=== PATIENT | male | born 1990 | race Caucasian/White ===

== ENCOUNTER 2020-02-13 07:59 | Outpatient (REF) | payer OTHER, SELFPAY | END 2020-02-13 08:00 | disposition home or self-care (01) | LOC: HO.HMGCLDS 07:59 | PROVIDERS: PCP Internal Medicine; Visit Provider Internal Medicine | DX: Z20.828 Contact with and (suspected) exposure to other viral communicable diseases (principal) | CPT/HCPCS: C9803; U0003 ==

== ENCOUNTER 2020-03-11 07:52 | Outpatient (REF) | payer SELFPAY | END 2020-03-11 07:53 | disposition home or self-care (01) | LOC: HO.HMGCLDS 07:52 | PROVIDERS: PCP Internal Medicine; Visit Provider Internal Medicine | DX: Z20.828 Contact with and (suspected) exposure to other viral communicable diseases (principal) | CPT/HCPCS: C9803; U0003 ==

== ENCOUNTER → 2021-11-13 13:44 | Outpatient (BNVA) | payer OTHER, SELFPAY | PROVIDERS: PCP Nurse Practitioner Family; Visit Provider Urology | DX: F41.8 Other specified anxiety disorders (principal); Z30.09 Encounter for other general counseling and advice on contraception | CPT/HCPCS: 99202 ==

== ENCOUNTER → 2021-12-17 13:33 | Outpatient (BNVA) | payer OTHER, SELFPAY | PROVIDERS: PCP Nurse Practitioner Family; Visit Provider Urology | DX: Z30.2 Encounter for sterilization (principal); F41.8 Other specified anxiety disorders | CPT/HCPCS: 55250 ==

== ENCOUNTER → 2022-03-24 14:09 | Outpatient (BNVA) | payer OTHER, SELFPAY | PROVIDERS: PCP Nurse Practitioner Family; Visit Provider Urology | DX: Z30.8 Encounter for other contraceptive management (principal); Z98.52 Vasectomy status | CPT/HCPCS: 99212 ==

== ENCOUNTER 2023-08-30 08:03 | Outpatient (AMB) | payer OTHER, SELFPAY ==
--- NOTE | 2023-08-30 08:06 | A.OFFPC_ITS ---
Vital Signs 08/30/23 08:08 Height 5 ft 8 in Weight 200 lb BMI 30.4 BP 130/86 Blood Pressure Location Rt brachial Position Sitting Pulse 87 Pulse Source Pulse Oximeter Pulse Oximetry (%) 98 Oxygen Delivery Method Room Air Intake Visit Reasons: Annual PE Intake Note: Patient here for physical exam. pt would like to talk about having a sleep study done. Allergies No Known Allergies Allergy (Verified 08/30/23 08:21) Medication List - Last Reconciled 08/30/23 by MAXIM Leahy citalopram 40 mg (2 x 20 mg) PO DAILY 90 days Tobacco use date assessed: 08/30/23 Dental Screening Dental Screen Date: 08/30/23 Did you have a dental visit in the last 12 months?: Yes Did you have a dental problem in the last 6 months where you did not have access to dental care?: No Was dental information given to patient?: Patient has dentist HPI Annual PE HPI Details Pt is here for a PE. Will order labs. Pt reports significant snoring and was told he stops breathing in his sleep. Will refer for sleep study. [facility] Surgical History History of hernia surgery Family History Father Hypertension Mother No problems noted. Brother Mental health disorder Substance use disorder Social History Housing: House Patient Tobacco Use Status: Never used Tobacco e-Cigarette/Vaping Use: Never Used Current occupational status: employed Cognitive needs: No Hearing needs: No Vision needs: No Questionnaire PHQ-9 Over the last 2 weeks, how often have you been bothered by any of the following problems? 1. Little interest or pleasure in doing things: not at all 2. Feeling down, depressed, or hopeless: not at all 3. Trouble falling or staying asleep, or sleeping too much: several days 4. Feeling tired or having little energy: more than half the days 5. Poor appetite or overeating: several days 6. Feeling bad about yourself - or that you are a failure or have let yourself or your family down: not at all 7. Trouble concentrating on things, such as reading the newspaper or watching television: not at all 8. Moving or speaking so slowly that other people could have noticed. Or the opposite - being so fidgety or restless that you have been moving around a lot more than usual: not at all 9. Thoughts that you would be better off or of hurting yourself in some wa y: not at all Total score: 4 Depression Screening Interpretation: Negative Depression Screening Done: Yes 34692 - PHQ-9 Billing: Yes Source: Developed by Drs. Ludwig Quintero, Ruby Taylor, Jamal Tierney and colleagues, with an educational shane from [employer]. Thrive Questionnaire Date Thrive assessed: 08/30/23 I am a: Patient What is your living situation today?: I have a steady place to live Within the past 12 months, did the food you bought not last and you didn't have the money to get more?: Never true Within the past 12 months, did you worry whether your food would run out before you got money to buy more?: Never true Do you have trouble paying for medicines?: No Do you have trouble getting transportation to medical appointments?: No Do you have trouble paying your heating and electricity bill?: No Do you have trouble taking care of your child, family member or friend?: No Do you have trouble with day-to-day activities such as bathing, preparing meals, shopping, managing finances, etc.?: No Are you currently unemployed and looking for a job?: No Are you interested in more education?: No Currently or been in a relationship where the following occur: no concerns reported and I choose not to answer this question THRIVE Score: 0 AUDIT C Alcohol Use Questionnaire (AUDIT-C) 1. How often do you have a drink containing alcohol?: 2-3 times a week 2. How many drinks containing alcohol do you have on a typical day when you are drinking?: 1 or 2 3. How often do you have six or more drinks on one occasion?: Never Total Score: 3 Score Reviewed/Action Taken: No KEMI-7 AMB Questionnaire KEMI-7 Date KEMI - 7 assessed: 08/30/23 Feeling nervous, anxious, or on edge: 1 = Several days Not being able to stop or control worryin = Several days Worrying too much about different things: 1 = Several days Trouble relaxin = Several days Being so restless that it is hard to sit still: 1 = Several days Becoming easily annoyed or irritable: 1 = Several days Feeling afraid as if something awful might happen: 0 = Not at all Total KEMI-7 score (0-4 normal; 5-9 mild; 10-14 moderate; 15-21 severe): 6 Source: Developed by Drs. Ludwig Quintero, Ruby Taylor, Jamal Tierney and colleagues, with an educational shane from [employer]. KEMI-7 Assessment Billing KEMI-7 Assessment Tool: KEMI-7 Assessment 03377 Review of Systems Const Denies chills and Denies fever(s) Eyes Denies blurry vision ENT Denies vertigo, Denies dizziness and Denies sore throat Card Denies chest pain at rest, Denies chest pain with activity, Denies diaphoresis, Denies dyspnea and Denies dyspnea on exertion Resp Denies cough, Denies dyspnea, Denies dyspnea on exertion and Denies wheezing GI Denies abdominal pain, Denies melena, Denies hematochezia, Denies constipation, Denies diarrhea and Denies loose stools Denies hematuria Musc Denies numbness and Denies tingling Skin/Breast Denies lesions Neuro Denies vertigo, Denies dizziness, Denies numbness and Denies tingling Psych Denies anxiety, Denies depression, Denies homicidal ideation, Denies suicidal ideation and Denies other (substance abuse) Aller/Immun Denies wheezing Physical exam (Primary Care) Vital Signs: Last Vital Signs Pulse 87 08/30/23 08:08 BP 130/86 08/30/23 08:08 Pulse Ox 98 08/30/23 08:08 Oxygen Delivery Method Room Air 08/30/23 08:08 BMI result Body Mass Index 30.4 Tobacco/Smoking Status: Tobacco use Status Tobacco use date assessed 08/30/23 08/30/23 08:11 Patient Tobacco Use Status Never used Tobacco 08/30/23 08:07 e-Cigarette/Vaping Use Never Used 08/30/23 08:07 Depression Screening Interpretation: Negative Thrive Assessment: Date of Thrive Assessment Date Thrive assessed 08/20/21 08/30/23 08:07 Currently or been in a relationship where the following occur: no concerns reported and I choose not to answer this question Const General: cooperative Nutritional Appearance: well nourished Orientation/consciousness: patient oriented x3 HENMT Head: Yes normal to inspection, Yes normocephalic and Yes atraumatic Ears: TM's normal bilaterally Eyes General: appearance normal, both eyes and all related structures Alignment and Position: alignment normal and position normal Neck Neck: Yes normal visual inspection and Yes no lymphadenopathy Thyroid: Thyroid normal Resp Effort & Inspection: normal respiratory effort Auscultation: clear to auscultation bilaterally Cardio Rate: regular rate Rhythm: regular rhythm Heart sounds: S1 normal heart sound present, S2 normal heart sound present and no murmurs GI Palpation (GI): Soft to palpation and nontender Auscultation: normal bowel sounds Male General Exam: Yes normal external exam Penis: normal penis Scrotum: scrotum normal, testes descended bilaterally and no inguinal hernias Testes: no testicular mass Skin Rashes: no rashes Neuro General: patient oriented x3, moves all extremities, no focal motor deficits and deep tendon reflexes 2+ bilaterally Romberg Test: Negative Psych Appearance: grossly normal Mental Status: mental status grossly normal Speech and movement: Normal speech and movement present Affect: normal affect Attitude: cooperative Thought process: Normal thought process present Thought content: Normal thought content present Insight: Good insight present (Psych) Judgement: Good judgement present (Psych) Assessment and Plan Assessment & Plan (1) Physical exam: Code(s): Z00.00 - Encounter for general adult medical examination without abnormal findings Plan: Labs ordered (2) Sleep apnea: Code(s): G47.30 - Sleep apnea, unspecified Plan: Referred for sleep study Plan The patient agreed to the use of a medical coding manager for this encounter. Scribed for MAXIM Holman by Kandace Cheng medical coding manager, on 08/30/2023 at 08:20 EST. Orders: Orders Complete Blood Count Auto Diff Today Z00.00 - Encounter for general adult medical examination without abnormal findings Comprehensive [place]. Panel Fast Today Z00.00 - Encounter for general adult medical examination without abnormal findings UA CC w/rflx Micro + Cult Today Z00.00 - Encounter for general adult medical examination without abnormal findings TSH reflex Free T4 Today Z00.00 - Encounter for general adult medical examination without abnormal findings Lipid Panel Today Z00.00 - Encounter for general adult medical examination without abnormal findings Referrals Sleep Medicine Referral G47.30 - Sleep apnea, unspecified Coding Level of Care Code Est Pt Prev Care 18-39y(10808) Diagnoses Physical exam Z00.00 Sleep apnea G47.30 Additional Codes KEMI-7 Assessment Billing - KEMI-7 Assessment Tool: KEMI-7 Assessment 44405 ([id number])
[2023-08-30 08:08] VITALS: BP 130/86; PULSE 87; O2SAT 98; BMI 30.4
== END 2023-08-30 08:36 | disposition home or self-care (01) ==
PROVIDERS: PCP Nurse Practitioner Family; Visit Provider Nurse Practitioner Family
DX: Z00.00 Encounter for general adult medical examination without abnormal findings (principal); G47.30 Sleep apnea, unspecified
CPT/HCPCS: 99395

== ENCOUNTER 2023-12-27 12:44 | Outpatient (AMB) | payer OTHER, SELFPAY ==
--- NOTE | 2023-12-27 12:59 | A.OFFVIS_ITS ---
Vital Signs 12/27/23 13:00 Height 5 ft 8 in Weight 205 lb BMI 31.2 BP 126/82 Blood Pressure Location Rt brachial Position Sitting Intake Visit Reasons: INP-GRAEME Intake Note: Patient presents for GRAEME. patient is snoring a lot,gasping for air and tired through out the day. Allergies No Known Allergies Allergy (Verified 12/27/23 13:02) Medication List - Last Reconciled 12/27/23 by JOHANA Hogan citalopram 40 mg (2 x 20 mg) PO DAILY HPI Comments Details: 33-yr-old male presents for new in-person patient visit for sleep consultation. Patient reports he has been having sleep issues for many years, but now would like to address this better. Both his parents and brother have sleep apnea. He has not had recent labs checked d/t needle phobia. Sleep questionnaire: Have you ever been diagnosed with a sleep disorder? No Have you ever had a sleep study in the past? No Have you ever been treated for a sleep disorder? No Do you take medications for a sleep disorder? No Do you have difficulty initiating sleep? No Do you have difficulty maintaining sleep? Yes- wakes up a lot Do you wake up tired? Yes Do you have daytime tiredness or fatigue? Yes Do you easily fall asleep when inactive? Yes Do you snore? Yes Do you wake up gasping at night? Yes Do you have episodes of apneas? Yes If yes, are they witnessed? Yes Do you have episodes of nocturnal chest pain? Denies Do you have bruxism? yes If yes, do you wear a mouth guard when sleeping? Has one, but does not use. Do you have headaches upon awakening? Denies Do you wake up with dry mouth or throat? Yes- during the night Do you have GERD? Denies Do you have nocturia? Denies Do you have nocturnal leg cramps? Denies Do you have symptoms of restless legs? At times, not overly bothersome. Denies leg cramps. Do you act out your dreams? Has kicked or talked in his sleep. Do you have sleep paralysis? Denies Do you have drop attacks? Denies Do you ever have hypnogenic hallucinations? Denies Hypersomnolence questionnaire: Have you ever had episodes of sudden weakness? Denies Have you ever had episodes of sudden weakness associated with strong emotions? Denies Sleep hygiene questionnaire: What is your usual sleep routine? Usual bedtime is at 9:30-10pm; Usual wake-up time is at 5:30am. Do you take naps? Yes- lunchtime Is your sleep environment cool, dark, and quiet? Yes Do you exercise? 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 1 energy drink a week, 1 cup of coffee 4 mornings per week. Do you use electronics in bed? some use of his phone What is your work schedule? Day shift. 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 [facility] Surgical History (Updated 12/27/23 @ 13:03 by FRANCISCO Reece) H/O vasectomy History of hernia surgery Family History Father Hypertension Mother No problems noted. Brother Mental health disorder Substance use disorder Social History Housing: House Patient Tobacco Use Status: Never used Tobacco e-Cigarette/Vaping Use: Never Used Current occupational status: employed Cognitive needs: No Hearing needs: No Vision needs: No Physical Exam Vital Signs: Last Vital Signs BP 126/82 12/27/23 13:00 BMI result Body Mass Index 31.2 Const General: no acute distress Orientation/consciousness: patient oriented x3 HEENT Other: Mallampati stage 4 Signs of lower dental wearing Resp Effort & Inspection: normal respiratory effort and able to speak in complete sentences Auscultation: clear to auscultation bilaterally Cardio Rate: regular rate Rhythm: regular rhythm Neuro General: patient oriented x3 Psych Mental Status: mental status grossly normal Speech and movement: Clear speech present Attitude: cooperative Assessment & Plan Assessment & Plan (1) Sleep difficulties: Code(s): G47.9 - Sleep disorder, unspecified Category: Medical (2) Excessive daytime sleepiness: Code(s): G47.19 - Other hypersomnia Category: Medical (3) Snoring: Code(s): R06.83 - Snoring Category: Medical (4) Bruxism: Code(s): F45.8 - Other somatoform disorders Category: Medical Plan Pt is advised to undergo home sleep study to assess for sleep apnea. Advised to wear his mouth guard. Labs as ordered by PCP. Pt advsied to avoid driving while sleepy. Will f/u with pt after study to discuss results and appropriate treatment options. Pt to call with any worsening concerns or questions. Pt is seen in c/w Dr Elis Peterson. Orders: Orders RT home sleep study Today G47.19 - Other hypersomnia, G47.9 - Sleep disorder, unspecified, R06.83 - Snoring Coding Level of Care Code New Pt Level 4 (31247) Diagnoses Sleep difficulties G47.9 Excessive daytime sleepiness G47.19 Snoring R06.83 Bruxism F45.8 [place] Sleepiness Scale Questions Sitting and reading: high chance of dozing Watching TV: high chance of dozing Sitting inactive in a theater, movie etc.: slight chance of dozing As a passenger in a car for an hour without break: high chance of dozing Lying down in the afternoon when circumstances permit: high chance of dozing Sitting and talking to someone: would never doze Sitting quietly after lunch without alcohol: high chance of dozing In a car, while stopped for a few minutes in the traffic: would never doze ESS < 10: normal, ESS > 12: pathologic: 16
[2023-12-27 13:00] VITALS: BP 126/82; BMI 31.2
== END 2023-12-27 13:45 | disposition home or self-care (01) ==
PROVIDERS: PCP Nurse Practitioner Family; Visit Provider Nurse Practitioner Family
DX: G47.9 Sleep disorder, unspecified (principal); G47.19 Other hypersomnia; R06.83 Snoring; F45.8 Other somatoform disorders
CPT/HCPCS: 99204

== ENCOUNTER → 2023-12-27 12:44 | Outpatient (BNVA) | payer OTHER, SELFPAY | PROVIDERS: PCP Nurse Practitioner Family; Visit Provider Nurse Practitioner Family | DX: G47.9 Sleep disorder, unspecified (principal); G47.19 Other hypersomnia; R06.83 Snoring; F45.8 Other somatoform disorders | CPT/HCPCS: 99202 ==

== ENCOUNTER → 2024-02-09 12:49 | Outpatient (REF) | payer OTHER, SELFPAY | LOC: HO.SL 12:49 | PROVIDERS: PCP Nurse Practitioner Family; Visit Provider Nurse Practitioner Family | DX: G47.9 Sleep disorder, unspecified (principal); R06.83 Snoring; G47.19 Other hypersomnia | CPT/HCPCS: 95806 ==

== ENCOUNTER → 2024-02-09 13:07 | Outpatient (BNV) | payer OTHER, SELFPAY | PROVIDERS: PCP Nurse Practitioner Family; Visit Provider Internal Medicine | DX: G47.33 Obstructive sleep apnea (adult) (pediatric) (principal) | CPT/HCPCS: 95806 ==

== ENCOUNTER 2024-04-02 10:24 | Outpatient (AMB) | payer OTHER, SELFPAY ==
[2024-04-02 10:32] VITALS: BP 112/70; PULSE 99; O2SAT 97; BMI 31.8
--- NOTE | 2024-04-02 10:32 | MHC.OFFVIS ---
Vital Signs 04/02/24 10:32 Height 5 ft 8 in Weight 209 lb BMI 31.8 BP 112/70 Blood Pressure Location Lt brachial Position Sitting Pulse 99 Pulse Source Doppler Pulse Oximetry (%) 97 Oxygen Delivery Method Room Air Intake Visit Reasons: Obstructive sleep apnea Allergies No Known Allergies Allergy (Verified 12/27/23 13:02) HPI HPI Obstructive sleep apnea: Details: 34-year-old gentleman with recent diagnosis of mild obstructive sleep apnea currently on CPAP therapy, also noted to have nocturnal hypoxemia and referred for further evaluation. Patient states that he has recently received his CPAP and started using it, however he still adjusting to it. Patient does have underlying history of asthma. [facility] Surgical History (Updated 12/27/23 @ 13:03 by FRANCISCO Reece) H/O vasectomy History of hernia surgery Family History Father Hypertension Mother No problems noted. Brother Mental health disorder Substance use disorder Social History Housing: House Patient Tobacco Use Status: Never used Tobacco e-Cigarette/Vaping Use: Never Used Current occupational status: employed Cognitive needs: No Hearing needs: No Vision needs: No Review of Systems Const Denies daytime sleepiness, Denies excessive sweating, Denies fatigue, Denies fever(s), Denies lethargy, Denies malaise, Denies night sweats, Denies snoring and Denies weight loss Eyes Denies blurry vision and Denies itchy eyes ENT Denies nasal congestion, Denies post nasal drip, Denies sinus pain, Denies sinus pressure and Denies other ( Thrush) Card Denies chest pain, Denies pedal edema, Denies dyspnea, Denies orthopnea and Denies paroxysmal nocturnal dyspnea Resp Denies cough, Denies hemoptysis, Denies excessive phlegm production, Denies dyspnea, Denies snoring and Denies wheezing GI Denies abdominal pain and Denies heartburn Musc Denies myalgias, Denies arthralgias and Denies joint swelling Skin/Breast Denies rash Neuro Denies memory loss and Denies seizure-like activity Psych Denies abnormal sleep pattern, Denies anxiety and Denies memory loss Endo Denies excessive sweating, Denies fatigue and Denies heat intolerance Emery/Lymph Denies easy bruising Aller/Immun Denies itchy eyes, Denies seasonal rhinorrhea and Denies wheezing Physical Exam Vital Signs: Last Vital Signs Pulse 99 04/02/24 10:32 BP 112/70 04/02/24 10:32 Pulse Ox 97 04/02/24 10:32 Oxygen Delivery Method Room Air 04/02/24 10:32 BMI result Body Mass Index 31.8 Const General: no acute distress and alert Nutritional Appearance: obese Orientation/consciousness: Other orientation findings ( oriented) HEENT Head: Yes atraumatic Eyes General: appearance normal, both eyes and all related structures Sclerae: sclerae normal EOM: EOMs intact bilaterally Neck Neck: Yes supple Lymphatic: no lymphadenopathy noted Resp Effort & Inspection: normal respiratory effort and no use of accessory muscles Auscultation: clear to auscultation bilaterally Cardio Rate: regular rate Rhythm: regular rhythm Heart sounds: no gallops, no murmurs and no rubs Skin General skin exam: other ( warm) Extrem General: No clubbing, No cyanosis and No edema Assessment & Plan Assessment & Plan (1) Mild obstructive sleep apnea: Code(s): G47.33 - Obstructive sleep apnea (adult) (pediatric) Category: Medical Plan: Continue CPAP therapy. (2) Nocturnal hypoxemia: Code(s): G47.34 - Idiopathic sleep related nonobstructive alveolar hypoventilation Category: Medical Plan: Likely related to underlying obstructive sleep apnea. Will obtain overnight oximetry on CPAP. (3) History of asthma: Code(s): Z87.09 - Personal history of other diseases of the respiratory system Category: Medical Plan: At this time asymptomatic. Orders: Orders Overnight Pulse Oximetry Today G47.34 - Idiopathic sleep related nonobstructive alveolar hypoventilation Coding Level of Care Code New Pt Level 4 (50741) Diagnoses Mild obstructive sleep apnea G47.33 Nocturnal hypoxemia G47.34 History of asthma Z87.09
== END 2024-04-02 10:49 | disposition home or self-care (01) ==
PROVIDERS: PCP Nurse Practitioner Family; Visit Provider Internal Medicine Pulmonary Disease
DX: G47.33 Obstructive sleep apnea (adult) (pediatric) (principal); G47.34 Idiopathic sleep related nonobstructive alveolar hypoventilation; Z87.09 Personal history of other diseases of the respiratory system
CPT/HCPCS: 99204

== ENCOUNTER → 2024-04-02 10:24 | Outpatient (BNVA) | payer OTHER, SELFPAY | PROVIDERS: PCP Nurse Practitioner Family; Visit Provider Internal Medicine Pulmonary Disease | DX: G47.33 Obstructive sleep apnea (adult) (pediatric) (principal); G47.34 Idiopathic sleep related nonobstructive alveolar hypoventilation; Z87.09 Personal history of other diseases of the respiratory system | CPT/HCPCS: 99202 ==

== ENCOUNTER 2024-05-18 08:15 | Outpatient (REF) | payer OTHER, SELFPAY ==
[2024-05-18 10:24] LABS: MANUAL DIFF FLAG NO
[2024-05-18 10:32] LABS: Basophils Percent Auto 0.4 % (0-2); Eosinophils Absolute Auto 0.2 X10*3/uL (0.0-0.4); Eosinophils Percent Auto 2.5 % (0-4); Hematocrit 41.7 % (42.0-52.0); Hemoglobin 14.4 g/dl (14.0-18.0); Imm Gran Abs Auto 0.02 X10*3/uL (0.00-0.03); Imm Gran Pct Auto 0.3 % (0.0-0.4); Lymphocytes Absolute Auto 2.7 X10*3/uL (1.2-4.9); Lymphocytes Percent Auto 39.9 % (20-40); Mean Corpuscular HGB Conc 34.5 g/dl (31.0-36.0); Mean Corpuscular Hemoglobin 31.1 pg (27.0-33.0); Mean Corpuscular Volume 90.1 fL (80.0-98.0); Mean Platelet Volume 10.5 fL (9.4-12.4); Monocytes Absolute Auto 0.7 X10*3/uL (0.1-1.2); Monocytes Percent Auto 9.8 % (2-11); Neutrophils Absolute Auto 3.2 x10*3/uL (2.0-8.3); Neutrophils Percent Auto 47.1 % (45-73); Platelet Count 262 X10*3/uL (160-400); Red Blood Count 4.63 X10*6/uL (4.60-5.80); Red Cell Distribution Width 12.9 % (11.0-16.0); White Blood Count 6.7 X10*3/uL (4.8-10.8)
[2024-05-18 10:36] LABS: Appearance Urine Clear; Color Urine Yellow; Glucose Urine UA Negative (Negative); Leukocyte Esterase Urine Negative (Negative); Nitrite Urine Negative (Negative); Specific Gravity - Urine 1.025 (1.005-1.025); Urine Blood Negative (Negative); Urine Ketones Negative (Negative); Urine Protein Negative (Neg-Trace)
[2024-05-18 11:25] LABS: Alanine Aminotransferase 59 U/L (0-40); Albumin Level 4.6 g/dL (3.5-5.0); Alkaline Phosphatase 61 U/L (39-117); Anion Gap 12 (12-20); Aspartate Amino Transferase 34 U/L (5-37); Bilirubin Total 0.5 mg/dL (0.0-1.0); Blood Urea Nitrogen 19 mg/dL (9-16); Calcium 9.7 mg/dL (8.4-10.2); Carbon Dioxide 27 mmol/L (22-29); Chloride 105 mmol/L (96-108); Cholesterol 218 mg/dL (<200); Estimated Glomerular Filt Rate > 60; Glucose Fasting 101 mg/dL (60-99); HDL Cholesterol 38 mg/dL (>40); LDL Cholesterol Calculated 131 mg/dL (<100); Potassium 4.3 mmol/L (3.3-5.1); Sodium 140 mmol/L (135-145); TSH reflex Free T4 2.49 uIU/mL (0.32-4.0); Triglycerides 247 mg/dL (<150)
== END 2024-05-18 08:16 | disposition home or self-care (01) ==
LOC: HO.HMGCLDS 08:15
PROVIDERS: PCP Nurse Practitioner Family; Visit Provider Nurse Practitioner Family
DX: Z00.00 Encounter for general adult medical examination without abnormal findings (principal)
CPT/HCPCS: 36415; 80053; 80061; 81003; 84443; 85025

== ENCOUNTER 2024-05-23 12:48 | Outpatient (AMB) | payer OTHER, SELFPAY ==
--- NOTE | 2024-05-23 13:01 | A.OFFVIS_ITS ---
Vital Signs 05/23/24 13:02 Height 5 ft 8 in Weight 213 lb BMI 32.4 BP 119/77 Blood Pressure Location Rt brachial Position Sitting Pulse 96 Pulse Source Doppler Pulse Oximetry (%) 96 Oxygen Delivery Method Room Air Intake Visit Reasons: [place] Allergies No Known Allergies Allergy (Verified 05/23/24 13:13) HPI HPI n[place]: Details: 34-year-old gentleman followed for mild obstructive sleep apnea and nocturnal hypoxemia. After the last office visit patient continued with his CPAP therapy with good control of his underlying sleep apnea symptoms. He also had overnight oximetry while on CPAP therapy that showed no significant nocturnal desaturations. [facility] Surgical History (Updated 12/27/23 @ 13:03 by FRANCISCO Reece) H/O vasectomy History of hernia surgery Family History Father Hypertension Mother No problems noted. Brother Mental health disorder Substance use disorder Social History Housing: House Patient Tobacco Use Status: Never used Tobacco e-Cigarette/Vaping Use: Never Used Current occupational status: employed Cognitive needs: No Hearing needs: No Vision needs: No Review of Systems Const Denies daytime sleepiness, Denies excessive sweating, Denies fatigue, Denies fever(s), Denies lethargy, Denies malaise, Denies night sweats, Denies snoring and Denies weight loss Eyes Denies blurry vision and Denies itchy eyes ENT Denies nasal congestion, Denies post nasal drip, Denies sinus pain, Denies sinus pressure and Denies other ( Thrush) Card Denies chest pain, Denies pedal edema, Denies dyspnea, Denies orthopnea and Denies paroxysmal nocturnal dyspnea Resp Denies cough, Denies hemoptysis, Denies excessive phlegm production, Denies dyspnea, Denies snoring and Denies wheezing GI Denies abdominal pain and Denies heartburn Musc Denies myalgias, Denies arthralgias and Denies joint swelling Skin/Breast Denies rash Neuro Denies memory loss and Denies seizure-like activity Psych Denies abnormal sleep pattern, Denies anxiety and Denies memory loss Endo Denies excessive sweating, Denies fatigue and Denies heat intolerance Emery/Lymph Denies easy bruising Aller/Immun Denies itchy eyes, Denies seasonal rhinorrhea and Denies wheezing Physical Exam Vital Signs: Last Vital Signs Pulse 96 05/23/24 13:02 BP 119/77 05/23/24 13:02 Pulse Ox 96 05/23/24 13:02 Oxygen Delivery Method Room Air 05/23/24 13:02 BMI result Body Mass Index 32.4 Const General: no acute distress and alert Nutritional Appearance: not obese Orientation/consciousness: Other orientation findings ( oriented) HEENT Head: Yes atraumatic Eyes General: appearance normal, both eyes and all related structures Sclerae: sclerae normal EOM: EOMs intact bilaterally Neck Neck: Yes supple Lymphatic: no lymphadenopathy noted Resp Effort & Inspection: normal respiratory effort and no use of accessory muscles Auscultation: clear to auscultation bilaterally Cardio Rate: regular rate Rhythm: regular rhythm Heart sounds: no gallops, no murmurs and no rubs Skin General skin exam: other ( warm) Extrem General: No clubbing, No cyanosis and No edema Assessment & Plan Assessment & Plan (1) Mild obstructive sleep apnea: Code(s): G47.33 - Obstructive sleep apnea (adult) (pediatric) Category: Medical Plan: Therapy and compliance report reviewed - patient is benefitting from and is compliant with noninvasive positive pressure ventilation treatment, using it greater than 70% of the time, more than 4 hours per night. Well controlled current CPAP therapy. Continue CPAP therapy (2) Nocturnal hypoxemia: Code(s): G47.34 - Idiopathic sleep related nonobstructive alveolar hypoventilation Category: Medical Plan: Results of overnight oximetry on CPAP reviewed significant nocturnal hypoxemia while on CPAP. No addition of nocturnal supplemental oxygen is required. Coding Level of Care Code Est Pt Level 4 (02506) Diagnoses Mild obstructive sleep apnea G47.33 Nocturnal hypoxemia G47.34
[2024-05-23 13:02] VITALS: BP 119/77; PULSE 96; O2SAT 96; BMI 32.4
== END 2024-05-23 14:34 | disposition home or self-care (01) ==
PROVIDERS: PCP Nurse Practitioner Family; Visit Provider Internal Medicine Pulmonary Disease
DX: G47.33 Obstructive sleep apnea (adult) (pediatric) (principal); G47.34 Idiopathic sleep related nonobstructive alveolar hypoventilation
CPT/HCPCS: 99214

== ENCOUNTER → 2024-05-23 12:48 | Outpatient (BNVA) | payer OTHER, SELFPAY | PROVIDERS: PCP Nurse Practitioner Family; Visit Provider Internal Medicine Pulmonary Disease | DX: G47.33 Obstructive sleep apnea (adult) (pediatric) (principal); G47.34 Idiopathic sleep related nonobstructive alveolar hypoventilation; Z99.89 Dependence on other enabling machines and devices | CPT/HCPCS: 99212 ==

== ENCOUNTER 2024-06-08 11:51 | Observation (INO) | payer OTHER, SELFPAY ==
[2024-06-08] VITALS (8 sets, daily range): BP systolic 116–150; BP diastolic 71–80; PULSE 72–97; RESP 16–20; TEMP 36.2–36.9; O2SAT 94–100; BMI 31.1
--- NOTE | ~2024-06-08 | MR_ITS ---
CLINICAL HISTORY: dizziness w nystagmus MR Brain without gadolinium Comparison: CT/SR - CT ANGIO HEAD NECK - 06/08/24 13:35 EDT Findings: No restricted diffusion. No intracranial mass or hemorrhage. No midline shift. No hydrocephalus. Vascular flow voids are intact. Orbital contents are unremarkable. Mucosal thickening throughout the paranasal sinuses. No focal bone lesion. IMPRESSION: No acute findings. This document has been electronically signed by: Alexis Carson MD on 06/08/2024 20:03:12
--- NOTE | ~2024-06-08 | CT_ITS ---
EXAMINATION: CTA NECK WITH CONTRAST CLINICAL INFORMATION: Dizziness. COMPARISON: None available. TECHNIQUE: CTA of the head and neck was performed in the axial plane from the mediastinum to the skull vertex using 70 mL Omnipaque 350 intravenous contrast. Additional reformatted multiplanar images including maximum intensity projection MIP images are generated on the CT workstation. This CT examination was performed using dose optimization techniques as appropriate, variously including the following: *Automated exposure control *Adjustment of mA and/or kV according to patient size (this includes techniques or standardized protocols for targeted exams where dose is matched to indication/reason for exam; i.e. extremities or head) *Use of iterative reconstruction technique. DLP: 1528 mGy centimeter. FINDINGS: The degree of stenosis determined by criteria similar to NASCET. Brain: No acute intracranial hemorrhage or mass effect midline shift, hydrocephalus or herniation. Dee-white matter differentiation is normal. Posterior cranial fossa contents are normal. No air-fluid levels in the paranasal sinuses. Mild mucosal thickening ethmoid cells and maxillary sinuses. Tympanic cavities and mastoid cells are aerated. Chest CTA: Normal diameter without focal stenosis or intimal flap, thoracic aortic arch. Neck CTA: Right CCA: Normal. Right ICA: Normal. Left CCA: Normal. Left ICA: Normal. V 1/ V2 segments: Normal. Right vertebral artery slightly dominant. Brain CTA: Anterior cerebral circulation: ICAs: Normal. MCA's: Normal. ACAs: Normal. Anterior communicating artery is patent. Ophthalmic arteries are patent. Left posterior communicating artery is patent. Posterior cerebral circulation: V3/V4 segments: Normal. Posterior inferior cerebellar arteries: Normal. Basilar artery: Focal fenestration in the proximal segment. Normal patency. No intimal flap. Right anterior inferior cerebral artery is patent. Superior cerebellar arteries are patent. transmitter engineer in charge: Normal. Ancillary findings: Prominent palatine tonsils bilaterally. CT/CT angio head neck IMPRESSION: No high degree stenosis or dissection. No main cerebral artery occlusion or embolus. No aneurysm, [place]. Electronically signed by: Jose Reeder MD 06/08/2024 02:33 PM EDT
--- NOTE | 2024-06-08 12:23 | ED_ITS ---
HPI - General Adult General Chief complaint: Dizziness Stated complaint: dizzy Time Seen by Provider: 06/08/24 12:23 Source: patient, family (patient's ) and EMS Mode of arrival: EMS Limitations: no limitations History of Present Illness ED Provider: Reina Jean-Baptiste PA-C HPI narrative: Patient is a 34 year old assigned male at with a history of GRAEME and asthma presenting to the emergency department today with dizziness and nausea. Patient states that he started feeling dizzy this morning, it resolved, came back, resolved again, and now he has been sustained dizzy over the last 1 hour. Patient states that he has also felt nauseous. Patient denies any lightheadedness, abdominal pain, vomiting, fever, chills, blurry vision, double vision, loss of vision, chest pain, difficulty breathing, shortness of breath, back pain, night sweats, pain with urination, increased urinary frequency, increased urinary urgency, blood in his urine or stool, syncope or a near syncopal episode, recent trauma or falls, bowel incontinence, bladder incontinence, or any other complaints at this time. Patient states that he does suffer from motion sickness. Relieving factors: none Exacerbating factors: none Associated symptoms: nausea/vomiting Treatments prior to arrival: none Related Data Previous Rx's ?Medication ?Instructions ?Recorded citalopram 20 mg tablet 40 mg (2 x 20 mg) PO DAILY #180 04/12/24 tabs Allergies Allergy/AdvReac Type Severity Reaction Status Date / Time No Known Allergies Allergy Verified 06/08/24 12:06 Review of Systems 2 Constitutional: Constitutional: Reports no additional constitutional complaints, Denies chills, Denies fever(s) and Denies night sweats Eyes: Eyes: Reports no additional eye complaints, Denies blurry vision, Denies change in vision, Denies diplopia, Denies eye discharge, Denies loss of vision and Denies eye pain ENT: Reports dizziness Cardiovascular: Cardiovascular: Reports no additional cardiovascular complaints, Denies chest pain, Denies lightheadedness, Denies Loss of Consciousness and Denies dyspnea Respiratory: Respiratory: Reports no additional respiratory complaints and Denies dyspnea Gastrointestinal: Gastrointestinal: Reports no additional gastrointestinal complaints, Denies abdominal pain, Denies melena, Denies hematochezia, Denies change in bowel habits, Denies change in stool character, Reports nausea and Denies vomiting Genitourinary: Genitourinary: Reports no additional male genitourinary complaints, Denies hematuria, Denies oliguria, Denies difficulty urinating, Denies dysuria, Denies urinary frequency, Denies urinary hesitancy, Denies urinary incontinence and Denies urinary urgency Musculoskeletal: Musculoskeletal: Reports no additional musculoskeletal complaints, Denies numbness and Denies tingling Neurologic: Reports dizziness, Denies loss of vision, Denies numbness and Denies tingling Psychiatric: Psychiatric: Reports no additional psychiatric complaints Endocrine: Endocrine: Reports no additional endocrine complaints Hematologic/Lymphatic: Hematologic/Lymphatic: Reports no additional hematologic/lymphatic complaints Allergic/Immunologic: Allergic/Immunologic: Reports no additional allergic/immunologic complaints PMFSH Past Medical History Attestation statement: The following information was validated with the patient. (all information validated with the patient's ) Source: old records reviewed, obtained from family (patient's provided additional history and confirmed the history provided by the patient.) and nursing notes reviewed Surgical History H/O vasectomy History of hernia surgery Family History Family History Father Hypertension Mother No problems noted. Brother Mental health disorder Substance use disorder Social History Social History Housing: House Alcohol intake: unknown Patient Tobacco Use Status: Never used Tobacco Smoked in Last 30 Days: No e-Cigarette/Vaping Use: Never Used Use of substances other than those prescribed or required for medical reasons: No Advance Directives: No Advance Directives Information Provided: No Do you have a plan to hurt others: No Plan Current occupational status: employed Cognitive needs: No Hearing needs: No Vision needs: No Physical Exam ED Vital Signs: Vital Signs - 24 hr 06/08/24 12:04 06/08/24 13:00 06/08/24 13:02 Temperature 98.0 F Pulse Rate 96 86 97 Respiratory Rate 18 Blood Pressure 129/71 132/76 122/79 Pulse Oximetry 100 Oxygen Delivery Method Room Air 06/08/24 15:51 06/08/24 15:53 Temperature 97.2 F Pulse Rate 86 86 Respiratory Rate 16 Blood Pressure 132/78 132/78 Pulse Oximetry 98 98 Oxygen Delivery Method Room Air BMI result Body Mass Index 31.1 Const General: cooperative, no acute distress, alert and awake Nutritional Appearance: well nourished Orientation/consciousness: patient oriented x3 Limitations: no limitations HENMT Head: Yes normal to inspection and Yes atraumatic Ears: hearing grossly normal bilaterally and external ears normal General nose exam: Normal external nose present, no nasal discharge noted and no epistaxis Face and sinus: Yes normal facial exam, No abrasion and No laceration Mouth: Normal oral and palatal mucosa present, no drooling and no muffled voice Eyes Periorbital: periorbital findings normal Eyelids: Yes eyelids normal Conjunctivae: conjunctivae normal Pupils: Equal, round and reactive pupils present EOM: Nystagmus present (horizontal) Neck Neck: Yes normal visual inspection, Yes full ROM and Yes no lymphadenopathy Chest Chest palpation & inspection: normal inspection of the chest Resp Effort & Inspection: normal respiratory effort and able to speak in complete sentences GI Inspection: Yes normal to inspection Neuro General: patient oriented x3, moves all extremities and CN's II-XI intact bilaterally Cranial nerves: Yes Equal, round and reactive pupils present and Yes Nystagmus present (horizontal) Cognition (Neuro): normal cognition Extrem General: Yes normal to inspection, Yes full ROM and Yes capillary refill normal Psych Appearance: grossly normal Mental Status: mental status grossly normal Affect: normal affect Attitude: cooperative Thought process: Normal thought process present Thought content: Normal thought content present Insight: Good insight present (Psych) Medications Administered Discontinued Medications Generic Name Dose Route Start Last Admin Trade Name Freq PRN Reason Stop Dose Admin Diazepam 5 mg 06/08/24 14:39 06/08/24 15:48 Diazepam 10 Mg/2 Ml Cartridge IVPUSH 06/08/24 14:40 5 mg STAT STA Administration Sodium Chloride 1,000 mls @ 999 mls/hr 06/08/24 12:30 06/08/24 14:04 Ns IV 06/08/24 13:30 Infused .Q1H1M GAMALIEL Infusion Sodium Chloride 1,000 mls @ 999 mls/hr 06/08/24 14:00 06/08/24 15:48 Ns IV 06/08/24 15:00 Infused .Q1H1M GAMALIEL Infusion Iohexol 100 ml 06/08/24 14:05 06/08/24 14:05 Iohexol 350 Mg/Ml 100 Ml Infus..Btl IV 06/08/24 14:06 70 ml ONCE ONE Administration Meclizine HCl 25 mg 06/08/24 12:27 06/08/24 14:18 Meclizine Hcl 25 Mg Tablet PO 06/08/24 12:28 25 mg ONCE ONE Administration Ondansetron HCl 4 mg 06/08/24 12:27 06/08/24 12:53 Ondansetron Hcl 4 Mg/2 Ml Vial IVPUSH 06/08/24 12:28 4 mg ONCE ONE Administration Medical Decision Making Medical Decision Making [facility] Narrative: Patient is a 34 year old assigned male at with a history of GRAEME and asthma presenting to the emergency department today with dizziness and nausea. Patient's physical exam was as noted in the physical exam portion of this note. Horizontal nystagmus noted. Patient's blood work was unremarkable. Patient's EKG was unremarkable. Patient's CTA head and neck showed no acute process. I explained my physical exam findings as well as all test results to the patient and the patient's . I answered all questions asked by the patient and the patient's . Patient received 2 liters of IV fluid, PO Antivert, and IV valium which, upon re-evaluation, he stated it helped his symptoms persisted. I had the physical therapy team perform the epely maneuver twice and the patient's symptoms persisted. I spoke to the hospitalist team who agreed to admission. Patient and the patient's verbalized agreement and understanding with this treatment plan and admission. Differential Diagnosis Differential Diagnoses: The differential diagnosis associated with the presentation includes Vertigo BPPV Profound dizziness Nausea Admission/Observation Consideration of admission/observation: Escalation of care including admission/observation considered Patient admitted as noted in the MDM Rationale portion of this note. Consult Healthcare Provider Management of the patient was discussed with: Hospitalist (agreed to admission as noted in the MDM Rationale portion of this note. ) Lab Data [facility] Lab Attestation statement: I reviewed the patient's lab results. My interpretation of these results are in the MDM Rationale portion of this note. 06/08/24 12:40 06/08/24 13:05 Labs: Lab Results 06/08/24 06/08/24 06/08/24 Range/Units 12:40 12:46 13:05 WBC 7.0 (4.8-10.8) X10*3/uL RBC 4.44 L (4.60-5.80) X10*6/uL Hgb 13.8 L (14.0-18.0) g/dl Hct 38.8 L (42.0-52.0) % MCV 87.4 (80.0-98.0) fL MCH 31.1 (27.0-33.0) pg MCHC 35.6 (31.0-36.0) g/dl RDW 12.6 (11.0-16.0) % Plt Count 230 (160-400) X10*3/uL MPV 10.1 (9.4-12.4) fL Immature Gran % (Auto) 0.4 (0.0-0.4) % Neut % (Auto) 54.5 (45-73) % Lymph % (Auto) 36.4 (20-40) % Garland % (Auto) 7.3 (2-11) % Eos % (Auto) 1.3 (0-4) % Baso % (Auto) 0.1 (0-2) % Lymph # (Auto) 2.6 (1.2-4.9) X10*3/uL [place] # (Auto) 0.5 (0.1-1.2) X10*3/uL Eos # (Auto) 0.1 (0.0-0.4) X10*3/uL Baso # (Auto) 0.0 (0.0-0.2) X10*3/uL Abs Immat Gran (auto) 0.03 (0.00-0.03) X10*3/uL Absolute Neuts (auto) 3.8 (2.0-8.3) x10*3/uL Absolute Nucleated RBC 0.000 (0.0-0.012) X10*3/uL Nucleated RBC % (auto) 0.0 (0.0-0.2) /100WBC PT 10.8 L (10.9-12.4) SEC INR 0.9 (0.9-1.1) Sodium 139 (135-145) mmol/L Potassium 4.1 (3.3-5.1) mmol/L Chloride 111 H (96-108) mmol/L Carbon Dioxide 22 (22-29) mmol/L Anion Gap 10 L (12-20) BUN 22 H (9-16) mg/dL Creatinine 0.83 (0.5-1.4) mg/dL Estim Creat Clear Calc 137.2 Estimated GFR > 60 Random Glucose 136 H (60-115) mg/dL Calcium 8.4 D (8.4-10.2) mg/dL Magnesium 1.8 (1.6-2.6) mg/dL Total Bilirubin 0.3 (0.0-1.0) mg/dL AST 25 (5-37) U/L ALT 44 H (0-40) U/L Alkaline Phosphatase 48 (39-117) U/L Troponin I High Sens < 2.7 (<3.5-35.0) ng/L Total Protein 6.9 (6.5-8.0) g/dL Albumin 4.0 (3.5-5.0) g/dL Influenza Type A (PCR) NEGATIVE (Negative) Influenza Type B (PCR) NEGATIVE (Negative) RSV RNA Qual (PCR) NEGATIVE (Negative) SARS-CoV-2 RNA (RT-PCR) NEGATIVE (Negative) Independent Interpretation I performed an independent interpretation of an: EKG and CT Scan Interpretation: My interpretation is in agreement with the radiologist's impression of this imaging study. L Report Number: [id number]: Total DLP = 633.00 mGy-cm EXAMINATION: CTA NECK WITH CONTRAST CLINICAL INFORMATION: Dizziness. COMPARISON: None available. TECHNIQUE: CTA of the head and neck was performed in the axial plane from the mediastinum to the skull vertex using 70 mL Omnipaque 350 intravenous contrast. Additional reformatted multiplanar images including maximum intensity projection MIP images are generated on the CT workstation. This CT examination was performed using dose optimization techniques as appropriate, variously including the following: *Automated exposure control *Adjustment of mA and/or kV according to patient size (this includes techniques or standardized protocols for targeted exams where dose is matched to indication/reason for exam; i.e. extremities or head) *Use of iterative reconstruction technique. DLP: 1528 mGy centimeter. FINDINGS: The degree of stenosis determined by criteria similar to NASCET. Brain: No acute intracranial hemorrhage or mass effect midline shift, hydrocephalus or herniation. Dee-white matter differentiation is normal. Posterior cranial fossa contents are normal. No air-fluid levels in the paranasal sinuses. Mild mucosal thickening ethmoid cells and maxillary sinuses. Tympanic cavities and mastoid cells are aerated. Chest CTA: Normal diameter without focal stenosis or intimal flap, thoracic aortic arch. Neck CTA: Right CCA: Normal. Right ICA: Normal. Left CCA: Normal. Left ICA: Normal. V 1/ V2 segments: Normal. Right vertebral artery slightly dominant. Brain CTA: Anterior cerebral circulation: ICAs: Normal. MCA's: Normal. ACAs: Normal. Anterior communicating artery is patent. Ophthalmic arteries are patent. Left posterior communicating artery is patent. Posterior cerebral circulation: V3/V4 segments: Normal. Posterior inferior cerebellar arteries: Normal. Basilar artery: Focal fenestration in the proximal segment. Normal patency. No intimal flap. Right anterior inferior cerebral artery is patent. Superior cerebellar arteries are patent. commodity lead: Normal. Ancillary findings: Prominent palatine tonsils bilaterally. CT/CT angio head neck IMPRESSION: No high degree stenosis or dissection. No main cerebral artery occlusion or embolus. No aneurysm, [place]. Electronically signed by: Jose Reeder MD 06/08/2024 02:33 PM EDT RP Dictated By: Jose Neri MD Signed By: Electronically signed by Jose Godinez MD 06/08/24 1433 I independently interpreted this EKG and am in agreement with the below findings: Vent. Rate: 76 BPM Atrial Rate: 76 BPM P-R Int: 142 ms QRS Dur: 94 ms QT Int: 374 ms P-R-T Axes: 19 31 45 degrees QTcB Int: 420 ms Normal sinus rhythm with sinus arrhythmia Normal ECG When compared with ECG of 07-Nov-2013 14:15, No significant change was found DD/ [id number] Radiology Impression Discussion of test interpretation with radiology: I have reviewed the radiologist's reading. Independent Historian Clinical information obtained from an independent historian. History obtained from or confirmed by: Spouse (patient's provided additional history and confirmed the history provided by the patient.) and EMS (EMS provided additional history and confirmed the history provided by the patient.) Critical Care Time Critical Care Time Critical Care Time: Yes Total Critical Care Time: 48 Attestation: I spent 48 minutes of Critical Care Time with this patient. This does not include time spent on separately reported billable procedures. Discharge Plan Discharge Clinical Impression: Vertigo, Nausea, Horizontal nystagmus Patient Disposition: Admitted As Inpatient
--- NOTE | 2024-06-08 12:27 | ECG_ITS ---
Test Reason : dizziness Blood Pressure : */* mmHG Vent. Rate : 76 BPM Atrial Rate : 76 BPM P-R Int : 142 ms QRS Dur : 94 ms QT Int : 374 ms P-R-T Axes : 19 31 45 degrees QTcB Int : 420 ms Normal sinus rhythm with sinus arrhythmia Normal ECG When compared with ECG of 07-Nov-2013 14:15, No significant change was found Referred By: Reina Jean-Baptiste Electronically Signed By: Matt Pitt
[2024-06-08 12:47] LABS: MANUAL DIFF FLAG NO
[2024-06-08 12:48] LABS: Basophils Percent Auto 0.1 % (0-2); Eosinophils Absolute Auto 0.1 X10*3/uL (0.0-0.4); Eosinophils Percent Auto 1.3 % (0-4); Hematocrit 38.8 % (42.0-52.0); Hemoglobin 13.8 g/dl (14.0-18.0); Imm Gran Abs Auto 0.03 X10*3/uL (0.00-0.03); Imm Gran Pct Auto 0.4 % (0.0-0.4); Lymphocytes Absolute Auto 2.6 X10*3/uL (1.2-4.9); Lymphocytes Percent Auto 36.4 % (20-40); Mean Corpuscular HGB Conc 35.6 g/dl (31.0-36.0); Mean Corpuscular Hemoglobin 31.1 pg (27.0-33.0); Mean Corpuscular Volume 87.4 fL (80.0-98.0); Mean Platelet Volume 10.1 fL (9.4-12.4); Monocytes Absolute Auto 0.5 X10*3/uL (0.1-1.2); Monocytes Percent Auto 7.3 % (2-11); Neutrophils Absolute Auto 3.8 x10*3/uL (2.0-8.3); Neutrophils Percent Auto 54.5 % (45-73); Platelet Count 230 X10*3/uL (160-400); Red Blood Count 4.44 X10*6/uL (4.60-5.80); Red Cell Distribution Width 12.6 % (11.0-16.0)
[2024-06-08] MEDS: 0.9 % Sodium Chloride 1,000 ML 999 ML IV ×2 (12:50→14:18)
[2024-06-08 12:53] LABS: INTERNATIONAL NORM RATIO 0.9 (0.9-1.1); Prothrombin Time 10.8 SEC (10.9-12.4)
[2024-06-08] MEDS: ondansetron HCL 4 MG/2 ML VIAL IVPUSH ×2 (12:53→17:49)
[2024-06-08 13:16] LABS: Troponin-I High Sensitivity < 2.7 ng/L (<3.5-35.0)
[2024-06-08 13:22] LABS: Alanine Aminotransferase 44 U/L (0-40); Alkaline Phosphatase 48 U/L (39-117); Anion Gap 10 (12-20); Aspartate Amino Transferase 25 U/L (5-37); Bilirubin Total 0.3 mg/dL (0.0-1.0); Blood Urea Nitrogen 22 mg/dL (9-16); Calcium 8.4 mg/dL (8.4-10.2); Carbon Dioxide 22 mmol/L (22-29); Chloride 111 mmol/L (96-108); Creatinine Clr Calc Pharmacy 137.2; Estimated Glomerular Filt Rate > 60; Glucose Random 136 mg/dL (60-115); Magnesium 1.8 mg/dL (1.6-2.6); Potassium 4.1 mmol/L (3.3-5.1); Sodium 139 mmol/L (135-145); Total Protein 6.9 g/dL (6.5-8.0)
[2024-06-08 13:37] LABS: Influenza A PCR NEGATIVE (Negative); Influenza B PCR NEGATIVE (Negative); Resp Syncy Virus RNA Qual PCR NEGATIVE (Negative); SARS COV2 PCR INHOUSE NEGATIVE (Negative)
[2024-06-08] MEDS: iohexoL 350 MG/ML 100 ML INFUS..BTL IV (14:05)
[2024-06-08] MEDS: Meclizine HCl 25 MG TABLET PO ×2 (14:18→20:01)
[2024-06-08] MEDS: diazePAM 10 MG/2 ML CARTRIDGE 5 MG IVPUSH ×2 (15:48→17:49)
--- NOTE | 2024-06-08 15:52 | PC.NURSE ---
Physical therapy report that pt is very positive for vertigo per there exam; pt still hesitant to open his eyes at this time; reports that nausea is improved, but dizziness and room spinning remains; pt medicated per orders and informed that he will be admitted; pt agreeable; will cont to monitor/tx per orders
--- NOTE | 2024-06-08 16:29 | PHA.MEDREC ---
Addendum entered by Javy Caal [facility] 06/08/24 16:33: Med rec reviewed Original Note: Pharmacy Consult ? Medication Reconciliation Pharmacy has completed the medication reconciliation. Spoke to patient to confirm med list.
--- NOTE | 2024-06-08 17:12 | P.HPHOSP_ITS ---
History of Present Illness Date of Service: 06/08/24 Chief Complaint: dizziness 34 year old with a history of GRAEME and asthma presenting to the emergency department today with dizziness and nauseous. Patient states that he started feeling dizzy this morning, it resolved, came back, resolved again, and now he has been sustained dizzy over the last 1 hour. Patient states that he has also felt nauseous. Patient denies any lightheadedness, abdominal pain, vomiting, fever, chills, blurry vision, double vision, loss of vision, chest pain, difficulty breathing, shortness of breath, back pain, night sweats, pain with urination, increased urinary frequency, increased urinary urgency, blood in his urine or stool, syncope or a near syncopal episode, recent trauma or falls, bowel incontinence, bladder incontinence, or any other complaints at this time. Denies recent viral illness or sinus infection. States rapid head movement i.e. [id number] turning or getting up exacerbates the dizziness Review of Systems 2 Review of Systems: Denies chest pain Denies shortness of breath Denies nausea vomiting diarrhea Denies fever chills PMFSH Family History Father Hypertension Mother No problems noted. Brother Mental health disorder Substance use disorder Surgical History H/O vasectomy History of hernia surgery Social History Housing: House Alcohol intake: unknown Patient Tobacco Use Status: Never used Tobacco Smoked in Last 30 Days: No e-Cigarette/Vaping Use: Never Used Use of substances other than those prescribed or required for medical reasons: No Advance Directives: No Advance Directives Information Provided: No Do you have a plan to hurt others: No Plan Current occupational status: employed Cognitive needs: No Hearing needs: No Vision needs: No Meds Allergies Allergy/AdvReac Type Severity Reaction Status Date / Time No Known Allergies Allergy Verified 06/08/24 12:06 Active Medications: Current Medications Acetaminophen (Acetaminophen 325 Mg Tablet) 650 mg PO Q6H PRN PRN Reason: Pain, Mild 1-3,fever,headache Calcium Carbonate (Calcium Carbonate 750 Mg Tab.Chew) 750 mg PO Q4H PRN PRN Reason: Heartburn Lactated Ringer's (Lr) 1,000 mls @ 125 mls/hr IVCONT .Q8H GAMALIEL Lorazepam (Lorazepam 0.5 Mg Tablet) 0.5 mg PO Q6H PRN PRN Reason: dizziness Magnesium Hydroxide (Milk Of Magnesia 30 Ml Oral.Susp) 30 ml PO DAILY PRN PRN Reason: Constipation Meclizine HCl (Meclizine Hcl 25 Mg Tablet) 25 mg PO Q6H PRN PRN Reason: vertigo Melatonin (Melatonin 3 Mg Tablet) 6 mg PO BEDTIME PRN PRN Reason: Insomnia Methylprednisolone Sodium Succinate (Methylprednisolone Sod Succ 125 Mg/2 Ml Vial) 125 mg IVPUSH ONCE ONE Stop: 06/08/24 17:09 Non-Formulary Medication (Citalopram) 40 mg PO DAILY GAMALIEL Ondansetron HCl (Ondansetron Hcl 4 Mg/2 Ml Vial) 4 mg IVPUSH Q6H PRN PRN Reason: Nausea and Vomiting Sodium Chloride (0.9 % Sodium Chloride Flush 3 Ml Syringe) 3 ml IVFLUSH QSHIFT [facility] Physical Exam 2 Vital Signs and Narrative: Vital Signs: Last Vital Signs Temp 97.2 F 06/08/24 15:53 Pulse 86 06/08/24 15:53 Resp 16 06/08/24 15:53 BP 132/78 06/08/24 15:53 Pulse Ox 98 06/08/24 15:53 O2 Del Method Room Air 06/08/24 15:53 BMI result Body Mass Index 31.1 Const: Other: Awake alert no acute distress lying quietly in bed Resp: Other: Clear to auscultation bilaterally no rales rhonchi or wheezes Cardio: Other: No S4; positive S1-S2; no S3 murmurs rubs or gallops GI: Other: Soft nontender nondistended normoactive bowel sounds Neuro: Other: Cranial nerves 2-12 grossly intact as tested. No horizontal nystagmus; question vertical nystagmus. Motor is 5/5 all extremities sensation is intact cognition is appropriate. Gait not observed Extrem: Other: No edema bilaterally Results Labs 06/08/24 12:40 06/08/24 13:05 Labs: Laboratory Results - last 24 hr 06/08/24 06/08/24 06/08/24 12:40 12:46 13:05 MCV 87.4 MCH 31.1 MCHC 35.6 RDW 12.6 Plt Count 230 MPV 10.1 Immature Gran % (Auto) 0.4 Neut % (Auto) 54.5 Lymph % (Auto) 36.4 George % (Auto) 7.3 Eos % (Auto) 1.3 Baso % (Auto) 0.1 Lymph # (Auto) 2.6 George # (Auto) 0.5 Eos # (Auto) 0.1 Baso # (Auto) 0.0 Abs Immat Gran (auto) 0.03 Absolute Neuts (auto) 3.8 Absolute Nucleated RBC 0.000 Nucleated RBC % (auto) 0.0 PT 10.8 L INR 0.9 Anion Gap 10 L Estim Creat Clear Calc 137.2 Estimated GFR > 60 Random Glucose 136 H Calcium 8.4 D Magnesium 1.8 Total Bilirubin 0.3 AST 25 ALT 44 H Alkaline Phosphatase 48 Total Protein 6.9 Albumin 4.0 Influenza Type A (PCR) NEGATIVE Influenza Type B (PCR) NEGATIVE RSV RNA Qual (PCR) NEGATIVE SARS-CoV-2 RNA (RT-PCR) NEGATIVE Imaging Radiologist's Impressions: Impressions Head/Neck CTA 06/08/24 13:53 IMPRESSION: No high degree stenosis or dissection. No main cerebral artery occlusion or embolus. No aneurysm, [place]. Electronically signed by: Jose Reeder MD 06/08/2024 02:33 PM EDT Assessment and Plan (1) Dizziness: Status: Acute (2) Anxiety: Status: Acute Plan 34-year-old male with history of sleep apnea and asthma along with anxiety on Celexa (for which he denies abrupt cessation) presents to the emergency department with dizziness and nausea. He stated it started within the last 24 hours and has occurred spontaneously x2. He states rapid head movements will exacerbate symptoms. In the emergency room workup including CTA head and neck failed to demonstrate acute pathology 1.Dizziness -questionable vertical nystagmus; more likely vestibular neuritis -methylprednisolone/Zofran/Ativan/meclizine -MRI of the head -follow on telemetry -we will consider neuro consult based on forthcoming data 2. Anxiety -continue SSRI Full code Ambulatory We will require at least 1 night stay to complete workup and follow response to therapies Quality Stroke Does the patient have a stroke diagnosis?: No VTE Prior VTE?: No VTE Risk Level:: Medical - low VTE Device Contraindication: Treatment Not Indicated VTE Drug Contraindication: Treatment Not Indicated
[2024-06-08 17:46] LABS: Appearance Urine Clear; Color Urine Yellow; Glucose Urine UA Negative (Negative); Leukocyte Esterase Urine Negative (Negative); Nitrite Urine Negative (Negative); PH 5.5 (5.0-9.0); Specific Gravity - Urine >= 1.030 (1.005-1.025); Urine Blood Negative (Negative); Urine Ketones Negative (Negative); Urine Protein Negative (Neg-Trace)
[2024-06-08] MEDS: methylPREDNISolone Sod Succ 125 MG/2 ML VIAL IVPUSH (17:49)
--- NOTE | 2024-06-08 18:03 | PC.NURSE ---
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
--- NOTE | 2024-06-08 18:45 | PC.NURSE ---
Pt to MRI
[2024-06-08] MEDS: Lactated Ringers 1,000 ML 125 ML IVCONT (19:55)
[2024-06-08] MEDS: LORazepam 0.5 MG TABLET PO (20:19)
[2024-06-09] MEDS: Lactated Ringers 1,000 ML 125 ML IVCONT ×2 (02:37→10:52)
[2024-06-09 06:03] LABS: MANUAL DIFF FLAG NO
[2024-06-09 06:05] LABS: Basophils Percent Auto 0.1 % (0-2); Hematocrit 38.6 % (42.0-52.0); Imm Gran Abs Auto 0.05 X10*3/uL (0.00-0.03); Imm Gran Pct Auto 0.5 % (0.0-0.4); Lymphocytes Absolute Auto 1.7 X10*3/uL (1.2-4.9); Lymphocytes Percent Auto 18.7 % (20-40); Mean Corpuscular HGB Conc 36.3 g/dl (31.0-36.0); Mean Corpuscular Hemoglobin 31.6 pg (27.0-33.0); Mean Corpuscular Volume 87.1 fL (80.0-98.0); Mean Platelet Volume 10.3 fL (9.4-12.4); Monocytes Absolute Auto 0.3 X10*3/uL (0.1-1.2); Monocytes Percent Auto 3.3 % (2-11); Neutrophils Absolute Auto 7.2 x10*3/uL (2.0-8.3); Neutrophils Percent Auto 77.4 % (45-73); Platelet Count 273 X10*3/uL (160-400); Red Blood Count 4.43 X10*6/uL (4.60-5.80); Red Cell Distribution Width 13.1 % (11.0-16.0); White Blood Count 9.3 X10*3/uL (4.8-10.8)
[2024-06-09 06:35] LABS: Alanine Aminotransferase 46 U/L (0-40); Albumin Level 4.1 g/dL (3.5-5.0); Alkaline Phosphatase 51 U/L (39-117); Anion Gap 10 (12-20); Aspartate Amino Transferase 26 U/L (5-37); Bilirubin Total 0.5 mg/dL (0.0-1.0); Blood Urea Nitrogen 13 mg/dL (9-16); Calcium 9.3 mg/dL (8.4-10.2); Carbon Dioxide 25 mmol/L (22-29); Chloride 110 mmol/L (96-108); Creatinine Clr Calc Pharmacy 144.2; Estimated Glomerular Filt Rate > 60; Glucose Random 125 mg/dL (60-115); Potassium 4.3 mmol/L (3.3-5.1); Sodium 141 mmol/L (135-145); Total Protein 7.1 g/dL (6.5-8.0)
[2024-06-09] MEDS: Escitalopram Oxalate 20 MG TABLET PO (08:40)
[2024-06-09] MEDS: predniSONE 20 MG TABLET 60 MG PO (08:40)
[2024-06-09 08:43] VITALS: BP 115/69; PULSE 100; RESP 16; TEMP 36.7; O2SAT 98
--- NOTE | 2024-06-09 12:19 | PM.DS ---
DS: Providers Provider Date of Service: 06/09/24 Date of admission: 06/08/24 17:06 Date of discharge: 06/09/24 Primary care physician: Unknown Physician DS: Diagnosis Discharge Diagnosis (1) Dizziness: Status: Acute (2) Anxiety: Status: Acute DS: Summary Hospital Course Hospital Course: 34 year old with a history of GRAEME and asthma presenting to the emergency department today with dizziness and nauseous. Patient states that he started feeling dizzy this morning, it resolved, came back, resolved again, and now he has been sustained dizzy over the last 1 hour. Patient states that he has also felt nauseous. Patient denies any lightheadedness, abdominal pain, vomiting, fever, chills, blurry vision, double vision, loss of vision, chest pain, difficulty breathing, shortness of breath, back pain, night sweats, pain with urination, increased urinary frequency, increased urinary urgency, blood in his urine or stool, syncope or a near syncopal episode, recent trauma or falls, bowel incontinence, bladder incontinence, or any other complaints at this time. Denies recent viral illness or sinus infection. States rapid head movement i.e. [id number] turning or getting up exacerbates the dizziness Hospital course Patient admitted to general medical floor given IV volume and IV steroids. MRI was obtained which failed to demonstrate any acute pathology. Over the course of 24 hours patient improved to the point where he could ambulate in ER without dizziness in his wishing DC. At this point in time he is medically stable for same. He will be discharged on a prednisone taper and will follow up with PCP Time Attestation Discharge Coordination Time (in mins): 35 Quality: Safe Use of Opioids Does Pt have an Active Cancer Diagnosis on the Problem List?: No Quality: Stroke Does the patient have a stroke diagnosis?: No Physical Exam Vital Signs: Vital Signs: Last Vital Signs Temp 98.0 F 06/09/24 08:43 Pulse 100 06/09/24 08:43 Resp 16 06/09/24 08:43 BP 115/69 06/09/24 08:43 Pulse Ox 98 06/09/24 08:43 O2 Del Method Room Air 06/09/24 08:43 BMI result Body Mass Index 31.1 Const: Other: Awake alert no acute distress lying quietly in bed Resp: Other: Clear to auscultation bilaterally no rales rhonchi or wheezes Cardio: Other: No S4; positive S1-S2; no S3 murmurs rubs or gallops GI: Other: Soft nontender nondistended normoactive bowel sounds Neuro: Other: Cranial nerves 2-12 grossly intact as tested. Motor is 5/5 all extremities sensation is intact cognition is appropriate. Gait not observed Extrem: Other: No edema bilaterally DS: Data Data Completed and Pending Labs on day of discharge: Laboratory Results - last 24 hr 06/08/24 06/08/24 06/08/24 12:40 12:46 13:05 WBC 7.0 RBC 4.44 L Hgb 13.8 L Hct 38.8 L MCV 87.4 MCH 31.1 MCHC 35.6 RDW 12.6 Plt Count 230 MPV 10.1 Immature Gran % (Auto) 0.4 Neut % (Auto) 54.5 Lymph % (Auto) 36.4 [place] % (Auto) 7.3 Eos % (Auto) 1.3 Baso % (Auto) 0.1 Lymph # (Auto) 2.6 [place] # (Auto) 0.5 Eos # (Auto) 0.1 Baso # (Auto) 0.0 Abs Immat Gran (auto) 0.03 Absolute Neuts (auto) 3.8 Absolute Nucleated RBC 0.000 Nucleated RBC % (auto) 0.0 PT 10.8 L INR 0.9 Sodium 139 Potassium 4.1 Chloride 111 H Carbon Dioxide 22 Anion Gap 10 L BUN 22 H Creatinine 0.83 Estim Creat Clear Calc 137.2 Estimated GFR > 60 Random Glucose 136 H Calcium 8.4 D Magnesium 1.8 Total Bilirubin 0.3 AST 25 ALT 44 H Alkaline Phosphatase 48 Troponin I High Sens < 2.7 Total Protein 6.9 Albumin 4.0 Urine Color Urine Appearance Urine pH Ur Specific [place] Urine Protein Urine Glucose (UA) Urine Ketones Urine Blood Urine Nitrite Ur Leukocyte Esterase Influenza Type A (PCR) NEGATIVE Influenza Type B (PCR) NEGATIVE RSV RNA Qual (PCR) NEGATIVE SARS-CoV-2 RNA (RT-PCR) NEGATIVE 06/08/24 06/09/24 17:38 05:44 WBC 9.3 RBC 4.43 L Hgb 14.0 Hct 38.6 L MCV 87.1 MCH 31.6 MCHC 36.3 H RDW 13.1 Plt Count 273 MPV 10.3 Immature Gran % (Auto) 0.5 H Neut % (Auto) 77.4 H Lymph % (Auto) 18.7 L [place] % (Auto) 3.3 Eos % (Auto) 0.0 Baso % (Auto) 0.1 Lymph # (Auto) 1.7 [place] # (Auto) 0.3 Eos # (Auto) 0.0 Baso # (Auto) 0.0 Abs Immat Gran (auto) 0.05 H Absolute Neuts (auto) 7.2 Absolute Nucleated RBC 0.000 Nucleated RBC % (auto) 0.0 PT INR Sodium 141 Potassium 4.3 Chloride 110 H Carbon Dioxide 25 Anion Gap 10 L BUN 13 Creatinine 0.79 Estim Creat Clear Calc 144.2 Estimated GFR > 60 Random Glucose 125 H Calcium 9.3 D Magnesium Total Bilirubin 0.5 AST 26 ALT 46 H Alkaline Phosphatase 51 Troponin I High Sens Total Protein 7.1 Albumin 4.1 Urine Color Yellow Urine Appearance Clear Urine pH 5.5 Ur Specific [place] >= 1.030 H Urine Protein Negative Urine Glucose (UA) Negative Urine Ketones Negative Urine Blood Negative Urine Nitrite Negative Ur Leukocyte Esterase Negative Influenza Type A (PCR) Influenza Type B (PCR) RSV RNA Qual (PCR) SARS-CoV-2 RNA (RT-PCR) Discharge Plan Discharge Anticipated Discharge Date/Time: 06/09/24 12:15 Patient Disposition: Home, Self-Care Discharge Diagnosis: Vestibular neuritis Referrals: Physician,Jerry J [Primary Care Provider] - 1 Week Discharge Medications: New prednisone 10 mg tablet See Rx Instructions .Route .COMPLEX Qty: 45 0RF Rx Instructions: 10 mg orally; 5 tabs p.o. daily x3 days; 4 tabs p.o. daily x3 days; 3 tabs daily x3 days; 2 tabs daily x3 days; 1 tab daily x3 days Continued citalopram 20 mg tablet 40 mg PO DAILY Qty: 180 1RF Discharge Orders: Discharge Order (Routine); Ordered 06/09/24 Ordered By: Pablo Mckeon Diet: Advance to usual diet Activity on Discharge: As tolerated Stand Alone Forms: Patient Portal Discharge page, Work/School Release Print Language: Yi Care Plan Goals: Complete prednisone taper as ordered. Resume your citalopram as previously taken Health Concerns: Follow up with your PCP next available Plan of Treatment: Gradually increase your activities Assessment: See discharge summary
[2024-06-09 12:57] VITALS: BP 117/60; PULSE 116; RESP 18; TEMP 36.6; O2SAT 97
[2024-06-09 12:58] VITALS: BP 117/60; PULSE 116; RESP 18; TEMP 36.6; O2SAT 97
== END 2024-06-09 13:03 | disposition home or self-care (01) ==
LOC: HO.ED 13:03 → HO.EDOVER 17:17
PROVIDERS: Physician Assistant Medical; Admitting Provider Hospitalist; Emergency Provider Emergency Medicine; Visit Provider Hospitalist
DX: R42 Dizziness and giddiness (principal); F41.9 Anxiety disorder, unspecified; R11.0 Nausea; I49.9 Cardiac arrhythmia, unspecified; J45.909 Unspecified asthma, uncomplicated; M79.2 Neuralgia and neuritis, unspecified
CPT/HCPCS: 0241U; 36415; 70496; 70498; 70551; 80053; 81003; 83735; 84484; 85025; 85610; 93005; 96361; 96374; 96375; 96376; 97161; 99222; 99285; J2405; J2919; J3360; J7120; Q9967

== ENCOUNTER → 2024-06-08 12:27 | Outpatient (BNV) | payer OTHER, SELFPAY | PROVIDERS: Admitting Provider Hospitalist; Emergency Provider Emergency Medicine; Visit Provider Internal Medicine Cardiovascular Disease | DX: R42 Dizziness and giddiness (principal) | CPT/HCPCS: 93010 ==

== ENCOUNTER → 2024-06-08 12:27 | Outpatient (BNV) | payer OTHER, SELFPAY | PROVIDERS: Emergency Provider Emergency Medicine; Visit Provider Radiology Diagnostic Radiology | DX: R42 Dizziness and giddiness (principal); H55.00 Unspecified nystagmus; J32.4 Chronic pansinusitis | CPT/HCPCS: 70496; 70498; 70551 ==

== ENCOUNTER → 2024-06-08 17:06 | Outpatient (BNV) | payer OTHER, SELFPAY | PROVIDERS: Admitting Provider Hospitalist; Emergency Provider Emergency Medicine; Visit Provider Hospitalist | DX: R42 Dizziness and giddiness (principal); F41.9 Anxiety disorder, unspecified | CPT/HCPCS: 99239 ==

== ENCOUNTER 2024-06-11 08:21 | Outpatient (REF) | payer OTHER, SELFPAY ==
--- NOTE | ~2024-06-11 | US_ITS ---
EXAMINATION: US ABDOMEN HISTORY: R74.8 - Abnormal levels of other serum enzymes TECHNIQUE: Real-time grayscale ultrasound imaging of the abdomen was performed and images were reviewed. COMPARISON: There are no prior studies for comparison. FINDINGS: Liver: The right lobe of the liver measures 15.8 cm in size. The left lobe of the liver measures 12.1 cm in size. The liver demonstrates increased echotexture, consistent with steatosis. No focal mass or intrahepatic biliary ductal dilatation is identified. Gallbladder and biliary tree: There are small polyps in the gallbladder measuring up to 6 mm in size. The gallbladder is otherwise unremarkable, without evidence of calculi, wall thickening, or pericholecystic fluid. There is no sonographic [place] sign. The common bile duct is normal in caliber measuring 2 mm. Kidneys: The right kidney measures 12.4 cm in length and is malrotated. There is a 3.4 x 3.7 x 2.2 cm hypoechoic area in the interpolar region which may represent a hypertrophied column of Matthias. It is difficult to exclude a mass. There are no calculi. There is no hydronephrosis. The left kidney measures 9.6 cm in length and is malrotated and located just to the left of the umbilicus. There is a probable hypertrophied: #10. There is no hydronephrosis or calculi. Pancreas: The pancreatic head, neck, and body are unremarkable. The pancreatic tail is obscured by bowel gas. Spleen: The spleen is normal in size and contour, measuring 11.0 cm in length. Abdominal aorta and inferior vena cava: The visualized portions of the abdominal aorta and inferior vena cava are normal in caliber. There is no free fluid in the abdomen. US/US abdomen complete IMPRESSION: 1. Hepatomegaly and hepatic steatosis. 2. Gallbladder polyps measuring up to 6 mm in size. 3. 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 This could be confirmed with contrast-enhanced CT or MRI. Electronically signed by: Ludwig Pineda MD 06/11/2024 09:40 AM EDT
== END 2024-06-11 08:22 | disposition home or self-care (01) ==
LOC: HO.HMGCX 08:21
PROVIDERS: PCP Nurse Practitioner Family; Visit Provider Nurse Practitioner Family
DX: R74.8 Abnormal levels of other serum enzymes (principal)
CPT/HCPCS: 76700

== ENCOUNTER → 2024-06-11 08:23 | Outpatient (BNV) | payer OTHER, SELFPAY | PROVIDERS: PCP Nurse Practitioner Family; Visit Provider Radiology Diagnostic Radiology | DX: K76.0 Fatty (change of) liver, not elsewhere classified (principal); K82.4 Cholesterolosis of gallbladder | CPT/HCPCS: 76700 ==

== ENCOUNTER → 2024-06-19 12:58 | Outpatient (BNV) | payer OTHER, SELFPAY | PROVIDERS: PCP Nurse Practitioner Family; Visit Provider Radiology Diagnostic Radiology | DX: K76.0 Fatty (change of) liver, not elsewhere classified (principal); Q63.2 Ectopic kidney | CPT/HCPCS: 74183 ==

== ENCOUNTER 2024-06-19 12:59 | Outpatient (REF) | payer OTHER, SELFPAY ==
--- NOTE | ~2024-06-19 | MR_ITS ---
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 TECHNIQUE: Axial in and out of phase T1-weighted gradient echo, axial diffusion weighted, and axial and coronal HASTE T2 with fat saturation images were obtained through the abdomen. Subsequently, fat suppressed axial and coronal T1-weighted images were obtained after the intravenous administration of 10 mL Gadavist. FINDINGS: There is diffuse loss of signal intensity within the liver on opposed phase imaging, consistent with steatosis. There is a tiny 2 mm cyst in the right lobe. No enhancing liver mass is identified. The hepatic and portal veins are patent. There is no intra or extrahepatic biliary ductal dilatation. There are tiny T2 hypointense enhancing foci along the gallbladder wall consistent with polyps, as noted on ultrasound. The spleen, pancreas, and adrenals are unremarkable. The right kidney is malrotated with the renal hilum facing anterolaterally and to the right. The left kidney is ectopic, located in the upper pelvis and is also malrotated, with the hilum facing anteriorly. There are hypertrophied columns of Matthias bilaterally. There is no renal mass. No retroperitoneal lymphadenopathy or ascites is identified in the upper abdomen. The visualized bones demonstrate normal marrow signal intensity. MR/MR abdomen wo/w con IMPRESSION: 1. Hepatic steatosis. 2. Tiny gallbladder polyps as noted on ultrasound. 3. The right kidney is malrotated. The left kidney is located ectopically in the upper pelvis and is also malrotated. No evidence of a renal mass. Electronically signed by: Ludwig Pineda MD 06/20/2024 08:17 AM EDT
[2024-06-19] MEDS: gadobutroL 10 ML VIAL IVPUSH (14:07)
== END 2024-06-19 13:00 | disposition home or self-care (01) ==
LOC: HO.MRI 12:59
PROVIDERS: PCP Nurse Practitioner Family; Visit Provider Nurse Practitioner Family
DX: Q63.2 Ectopic kidney (principal); R74.8 Abnormal levels of other serum enzymes
CPT/HCPCS: 74183; A9585

== ENCOUNTER 2024-07-17 14:27 | Outpatient (AMB) | payer OTHER, SELFPAY ==
--- NOTE | 2024-07-17 14:33 | MHC.OFFVIS ---
Vital Signs 07/17/24 14:39 BP 130/80 Blood Pressure Location Rt brachial Pulse 87 Pulse Source Pulse Oximeter Pulse Oximetry (%) 97 Oxygen Delivery Method Room Air Intake Visit Reasons: Follow Up Intake Note: Patient presents follow up for GRAEME. Light Bulb Replacer Required: No Accompanied by: Self / Same As Patient Allergies No Known Allergies Allergy (Verified 07/17/24 14:38) HPI Comments Details: 34-year-old male with presents for follow-up of obstructive sleep apnea and nocturnal hypoxemia. Interval 02/09/2024 home sleep study showed mild sleep apnea and nocturnal hypoxemia- AHI of 13 per hour, average oxygen level 92%, SpO2 under 90% times 39 minutes, and under 88% for 28 minutes. 05/08/2024, overnight pulse oximetry study while on APAP 5-20 cm H2O and room air, showed average SpO2 94.7%, with SpO2 greater than 90% for 99.9% of study time and SpO2 below 90% for 0.1% of study time with O2 zoe 88%. As sleep study showed mild sleep apnea with nocturnal hypoxemia, APAP 5-20 cm H2O. As patient endorsed a history of asthma, we did request pulmonology consultation, which patient did have done. Pulmonary felt that patient did not require supplemental O2 at night, as overnight pulse oximetry study did not show any significant desaturations while on APAP tx. He states he is sleeping well with the CPAP. He is using the CPAP nightly, though occasionally may wake up having removed the mask in his sleep. Generally wakes up with increased daytime energy. CPAP usage review: We are unable to access patient's CPAP compliance data, as ResMed air view is temporarily unavailable. He states he is change you can cleaning his CPAP supplies regularly. He is using distilled water in his PAP water tank reservoir 12/27/2023, initial HPI: 33-yr-old male presents for new in-person patient visit for sleep consultation. Patient reports he has been having sleep issues for many years, but now would like to address this better. Both his parents and brother have sleep apnea. He has not had recent labs checked d/t needle phobia. Sleep questionnaire: Have you ever been diagnosed with a sleep disorder? No Have you ever had a sleep study in the past? No Have you ever been treated for a sleep disorder? No Do you take medications for a sleep disorder? No Do you have difficulty initiating sleep? No Do you have difficulty maintaining sleep? Yes- wakes up a lot Do you wake up tired? Yes Do you have daytime tiredness or fatigue? Yes Do you easily fall asleep when inactive? Yes Do you snore? Yes Do you wake up gasping at night? Yes Do you have episodes of apneas? Yes If yes, are they witnessed? Yes Do you have episodes of nocturnal chest pain? Denies Do you have bruxism? yes If yes, do you wear a mouth guard when sleeping? Has one, but does not use. Do you have headaches upon awakening? Denies Do you wake up with dry mouth or throat? Yes- during the night Do you have GERD? Denies Do you have nocturia? Denies Do you have nocturnal leg cramps? Denies Do you have symptoms of restless legs? At times, not overly bothersome. Denies leg cramps. Do you act out your dreams? Has kicked or talked in his sleep. Do you have sleep paralysis? Denies Do you have drop attacks? Denies Do you ever have hypnogenic hallucinations? Denies Hypersomnolence questionnaire: Have you ever had episodes of sudden weakness? Denies Have you ever had episodes of sudden weakness associated with strong emotions? Denies Sleep hygiene questionnaire: What is your usual sleep routine? Usual bedtime is at 9:30-10pm; Usual wake-up time is at 5:30am. Do you take naps? Yes- lunchtime Is your sleep environment cool, dark, and quiet? Yes Do you exercise? 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 1 energy drink a week, 1 cup of coffee 4 mornings per week. Do you use electronics in bed? some use of his phone What is your work schedule? Day shift. 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 [facility] Medical History (Updated 06/20/24 @ 08:36 by MAXIM Leahy) Fatty liver Anxiety Surgical History H/O vasectomy History of hernia surgery Family History Father Hypertension Mother No problems noted. Brother Mental health disorder Substance use disorder Social History Housing: House Alcohol intake: unknown Patient Tobacco Use Status: Never used Tobacco e-Cigarette/Vaping Use: Never Used Current occupational status: employed Cognitive needs: No Hearing needs: No Vision needs: No Physical Exam Vital Signs: Last Vital Signs Pulse 87 07/17/24 14:39 BP 130/80 07/17/24 14:39 Pulse Ox 97 07/17/24 14:39 Oxygen Delivery Method Room Air 07/17/24 14:39 Const General: no acute distress Orientation/consciousness: patient oriented x3 Resp Effort & Inspection: normal respiratory effort and able to speak in complete sentences Neuro General: patient oriented x3 Psych Mental Status: mental status grossly normal Speech and movement: Clear speech present Attitude: cooperative Assessment & Plan Assessment & Plan (1) Mild obstructive sleep apnea: Code(s): G47.33 - Obstructive sleep apnea (adult) (pediatric) Category: Medical (2) Bruxism: Code(s): F45.8 - Other somatoform disorders Category: Medical (3) Nocturnal hypoxemia: Code(s): G47.34 - Idiopathic sleep related nonobstructive alveolar hypoventilation Category: Medical Plan For GRAEME: Reviewed results of sleep study an overnight pulse oximetry study report- mild obstructive sleep apnea with nocturnal hypoxemia, which is resolved to use of PAP therapy. We will request PAP compliance report- an update patient on results once available. Continue APAP 5-20 cmH2O w/ EPR set to need nightly > 4 hours, as pt continues to have good clinical effect from use. Clean CPAP machine and supplies routinely. Change CPAP supplies routinely. Use distilled water in CPAP water reservoir. As sleep apnea is mild and BMI is greater than 30, advised that weight loss through optimizing diet and increasing physical activity may result in reduction of sleep apnea symptoms. Mouth guard for bruxism Pt to contact us or respiratory company with any questions or concerns. Pt to follow-up in 12 months or sooner prn. Coding Level of Care Code Est Pt Level 4 (69832) Diagnoses Mild obstructive sleep apnea G47.33 Bruxism F45.8 Nocturnal hypoxemia G47.34
[2024-07-17 14:39] VITALS: BP 130/80; PULSE 87; O2SAT 97
== END 2024-07-17 15:08 | disposition home or self-care (01) ==
LOC: HO.HSMS 14:28
PROVIDERS: PCP Nurse Practitioner Family; Visit Provider Nurse Practitioner Family
DX: G47.33 Obstructive sleep apnea (adult) (pediatric) (principal); F45.8 Other somatoform disorders; G47.34 Idiopathic sleep related nonobstructive alveolar hypoventilation
CPT/HCPCS: 99214

== ENCOUNTER → 2024-07-17 14:27 | Outpatient (BNVA) | payer OTHER, SELFPAY | PROVIDERS: PCP Nurse Practitioner Family; Visit Provider Nurse Practitioner Family | DX: G47.33 Obstructive sleep apnea (adult) (pediatric) (principal); G47.34 Idiopathic sleep related nonobstructive alveolar hypoventilation; F45.8 Other somatoform disorders | CPT/HCPCS: 99212 ==

== ENCOUNTER 2024-08-16 14:53 | Outpatient (AMB) | payer OTHER, SELFPAY ==
--- NOTE | 2024-08-16 14:55 | A.OFFVIS_ITS ---
Intake Visit Reasons: ectopic kidney Intake Note: Fabricio is a 34 year old male who presents today for a new problem visit for Ectopic Kidney that was found on MRI ordered by PCP . No Urology meds No Blood Thinners IMPRESSION: 1. Hepatic steatosis. 2. Tiny gallbladder polyps as noted on ultrasound. 3. The right kidney is malrotated. The left kidney is located ectopically in the upper pelvis and is also malrotated. No evidence of a renal mass. Allergies No Known Allergies Allergy (Verified 07/17/24 14:38) HPI Comments Details: Fabricio is a 34-year-old male who is here for evaluation as a new patient due to ectopic kidney. 3. The right kidney is malrotated. The left kidney is located ectopically in the upper pelvis and is also malrotated. No evidence of a renal mass. COUNT INCLUDES THE [facility] Medical History (Updated 06/20/24 @ 08:36 by Emmanuel Gomez [facility]) Fatty liver Anxiety Surgical History H/O vasectomy History of hernia surgery Family History Father Hypertension Mother No problems noted. Brother Mental health disorder Substance use disorder Social History Housing: House Alcohol intake: unknown Patient Tobacco Use Status: Never used Tobacco e-Cigarette/Vaping Use: Never Used Current occupational status: employed Cognitive needs: No Hearing needs: No Vision needs: No Results AMB Urinalysis, Automated UA Leukoctes 0 María/uL Last Edit by PHILLY Samuel on 08/16/24 15:06 UA Nitrite Negative Last Edit by PHILLY Samuel on 08/16/24 15:06 UA Urobilinogen 3.5 mg/dL Last Edit by PHILLY Samuel on 08/16/24 15:0 6 UA Protein 15 mg/dL Last Edit by PHILLY Samuel on 08/16/24 15:06 UA pH 6.0 Last Edit by PHILLY Samuel on 08/16/24 15:06 UA Blood 0 Ang/uL Last Edit by PHILLY Samuel on 08/16/24 15:06 UA Specific [place] 1.015 Last Edit by Eddie Alberchtney, [facility] on 08/16/24 15: 06 UA Ketone Negative Last Edit by Dianejaretannie Betancur [facility] on 08/16/24 15:06 UA Bilirubin 0 mg/dL Last Edit by Eddie Albrechtevangelina [facility] on 08/16/24 15:06 UA Glucose 0 mg/dL Last Edit by Padminiannie Pipe [facility] on 08/16/24 15:06 Results Reviewed Results Reviewed: Laboratory Last Values Urine pH (Auto) 6.0 08/16/24 15:05 Specific [place] (Auto) 1.015 08/16/24 15:05 Urine Protein (Auto) 15 mg/dL 08/16/24 15:05 Glucose (UA)(Auto) 0 mg/dL 08/16/24 15:05 Urine Ketones (Auto) Negative 08/16/24 15:05 Urine Blood (Auto) 0 Ang/uL 08/16/24 15:05 Urine Nitrite (Auto) Negative 08/16/24 15:05 Urine Bilirubin (Auto) 0 mg/dL 08/16/24 15:05 Urine Urobilinogen (Auto) 3.5 mg/dL 08/16/24 15:05 Leukocyte Esterase (Auto) 0 María/uL 08/16/24 15:05 Date of Service: 06/19/24 Procedure(s): MR abdomen wo/w con Accession Number(s): [id number] cc: Emmanuel Gomez [facility]~ EXAMINATION: MRI Abdomen without and with contrast HISTORY: 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 TECHNIQUE: Axial in and out of phase T1-weighted gradient echo, axial diffusion weighted, and axial and coronal HASTE T2 with fat saturation images were obtained through the abdomen. Subsequently, fat suppressed axial and coronal T1-weighted images were obtained after the intravenous administration of 10 mL Gadavist. FINDINGS: There is diffuse loss of signal intensity within the liver on opposed phase imaging, consistent with steatosis. There is a tiny 2 mm cyst in the right lobe. No enhancing liver mass is identified. The hepatic and portal veins are patent. There is no intra or extrahepatic biliary ductal dilatation. There are tiny T2 hypointense enhancing foci along the gallbladder wall consistent with polyps, as noted on ultrasound. The spleen, pancreas, and adrenals are unremarkable. The right kidney is malrotated with the renal hilum facing anterolaterally and to the right. The left kidney is ectopic, located in the upper pelvis and is also malrotated, with the hilum facing anteriorly. There are hypertrophied columns of Matthias bilaterally. There is no renal mass. No retroperitoneal lymphadenopathy or ascites is identified in the upper abdomen. The visualized bones demonstrate normal marrow signal intensity. IMPRESSION: 1. Hepatic steatosis. 2. Tiny gallbladder polyps as noted on ultrasound. 3. The right kidney is malrotated. The left kidney is located ectopically in the upper pelvis and is also malrotated. No evidence of a renal mass. Assessment & Plan Assessment & Plan Orders: Orders AMB Urinalysis Automated Today Z13.9 - Encounter for screening, unspecified Coding
== END 2024-08-16 15:18 | disposition home or self-care (01) ==
LOC: HO.HUSH 14:53
PROVIDERS: PCP Nurse Practitioner Family; Visit Provider Urology
DX: Z13.9 Encounter for screening, unspecified (principal)

== ENCOUNTER → 2024-08-16 14:53 | Outpatient (BNVA) | payer OTHER, SELFPAY | PROVIDERS: PCP Nurse Practitioner Family; Visit Provider Urology | DX: Q63.2 Ectopic kidney (principal) | CPT/HCPCS: 81003; 99202 ==

== ENCOUNTER → 2024-08-30 10:43 | Outpatient (REF) | payer OTHER, SELFPAY ==
--- NOTE | ~2024-08-30 | NM_ITS ---
EXAMINATION: NM KIDNEY IMAGING CLINICAL INFORMATION: Ectopic kidney COMPARISON: MRI abdomen 06/19/2024 TECHNIQUE: Following intravenous administration of 10 mCi of technetium 99m DTPA, imaging over both kidneys was obtained at 2 seconds per frame for 1 minute followed by 2 minute static images up to 60 minutes. 40 mg Lasix was given at 30 minutes into the scan. The exam was stopped at 50 minutes as patient had to urgently urinate. FINDINGS: On perfusion scan there is slightly diminished perfusion to the left kidney. This could be inaccurate due to low lying and pelvic kidney and decreased measurable counts. The right kidney has normal perfusion. On static images left kidneys low-lying, ectopic. There is symmetrical cortical uptake with slightly delayed excretion of the right kidney. On renogram curves the cortical split function left kidney is 29.5% and right kidney is 70.5% image includes the entire scan. There is no obstruction. Time from Lasix to half Lasix left kidney is 35.6 and right kidney is 13.4 minutes. 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 There is slight diminished perfusion to the left kidney and may be due to a low-lying position and and significant attenuation. The right kidney perfusion is normal. There is normal right cortical uptake, function and excretion considering there is 5 to 10 minute gap post Lasix at 50 minutes into the exam. There is slightly diminished left cortical function compared to right. There is no hydronephrosis in either kidney. The Lasix response is irrelevant as there was diminished cortical function in left kidney Total split renal functional left kidney is 29.5% and right kidney 70.5%. No evidence of hydronephrosis Electronically signed by: Sudheer Baer MD 08/30/2024 04:14 PM EDT
--- OUTSIDE RECORDS SUMMARY | 2024-08-30 12:32 | XMS_ITS | Patient Health Record ---
[facility] Organization [facility] Address [address] [place] [address] Care Team Providers Care Managed Care Manager Name Role Phone Hoang Gilmore MD Primary Care Provider Ronald Cesar Unavailable [phone] Reason For Referral No Information Medications Medication SIG (Take, Route, Frequency, Duration) Notes Start Date End Date Status Acetaminophen-Codeine 300-60 MG 1 tablet as needed Orally every 6 hrs for as needed 11/30/2012 Active Problems Problem Type SNOMED Code ICD Code Onset Dates Problem Status W/U Status Risk Notes Problem Verruca plantaris (46797591) Verruca Plantaris (078.19) Active confirmed Problem Puncture wound (02274624) Puncture Wound (892.0) Active confirmed Problem Ulcer of Other Part of Foot (707.15) Active confirmed Plan Of Treatment Pending Test Test Name Order Date [id number]-Vuff Destruction, -14 11/13/2012 [id number]-Crsf Destruction, -14 11/28/2012 58653- Debride <25 sq cm 09/08/2012 Insurance Providers Payer Name Payer Address Payer Phone Subscriber Number Group Number Insured Name Patient Relationship to Insured Coverage Start Date Coverage End Date [facility] [employer] Others [address] [place] [address] [phone] [id number] Fabricio Wan i Self - patient is the insured Medical (General) History Medical History History ICD Code chicken pox
== END ==
LOC: HO.NUCMED 10:43
PROVIDERS: PCP Nurse Practitioner Family; Visit Provider Urology
DX: Q63.2 Ectopic kidney (principal)
CPT/HCPCS: 78708; A9539; J1938

== ENCOUNTER → 2024-08-30 10:44 | Outpatient (BNV) | payer OTHER, SELFPAY | PROVIDERS: PCP Nurse Practitioner Family; Visit Provider Radiology Diagnostic Radiology | DX: N28.89 Other specified disorders of kidney and ureter (principal) | CPT/HCPCS: 78708 ==

== ENCOUNTER 2024-09-05 08:26 | Outpatient (AMB) | payer OTHER, SELFPAY ==
--- NOTE | 2024-09-05 08:31 | MHC.PC.OV ---
Vital Signs 09/05/24 08:34 Height 5 ft 8 in Weight 214 lb BMI 32.5 BP 118/72 Blood Pressure Location Lt brachial Position Sitting Pulse 82 Pulse Source Pulse Oximeter Pulse Oximetry (%) 97 Intake Visit Reasons: ANNUAL PE Mortgage Loan Processor Required: No Accompanied by: Self / Same As Patient Allergies No Known Allergies Allergy (Verified 09/05/24 09:05) Medication List - Last Reconciled 09/05/24 by MAXIM Leahy citalopram 40 mg (2 x 20 mg) PO DAILY Tobacco use date assessed: 09/05/24 Dental Screening Dental Screen Date: 09/05/24 Did you have a dental visit in the last 12 months?: Yes Did you have a dental problem in the last 6 months where you did not have access to dental care?: No Was dental information given to patient?: Patient has dentist HPI ANNUAL PE HPI Details PE: doing well overall. reports increase in anxiety recently, currently on citalopram 40mg daily. I will add a low dose buspirone and follow up with him in 2 months. denies any si or hi PFSH Medical History (Updated 09/05/24 @ 09:08 by MAXIM Leahy) Anxiety Fatty liver Surgical History H/O vasectomy History of hernia surgery Family History Father Hypertension Mother No problems noted. 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 1. Little interest or pleasure in doing things: several days 2. Feeling down, depressed, or hopeless: several days 3. Trouble falling or staying asleep, or sleeping too much: not at all 4. Feeling tired or having little energy: several days 5. Poor appetite or overeating: not at all 6. Feeling bad about yourself - or that you are a failure or have let yourself or your family down: not at all 7. Trouble concentrating on things, such as reading the newspaper or watching television: several days 8. Moving or speaking so slowly that other people could have noticed. Or the opposite - being so fidgety or restless that you have been moving around a lot more than usual: more than half the days 9. Thoughts that you would be better off or of hurting yourself in some way: not at all Total score: 6 Depression Screening Interpretation: Negative Depression Screening Done: Yes 82926 - PHQ-9 Billing: Yes Source: Developed by Drs. Ludwig Quintero, Ruby Taylor, Jamal Tierney and colleagues, with an educational shane from [employer]. Thrive Questionnaire Date Thrive assessed: 09/05/24 I am a: Patient What is your living situation today?: I have a steady place to live Within the past 12 months, did the food you bought not last and you didn't have the money to get more?: Never true Within the past 12 months, did you worry whether your food would run out before you got money to buy more?: Never true Do you have trouble paying for medicines?: No Do you have trouble getting transportation to medical appointments?: No Do you have trouble paying your heating and electricity bill?: No Do you have trouble taking care of your child, family member or friend?: No Do you have trouble with day-to-day activities such as bathing, preparing meals, shopping, managing finances, etc.?: No Are you currently unemployed and looking for a job?: No Are you interested in more education?: No Please select the resources that you would like help with: None Currently or been in a relationship where the following occur: No concerns reported THRIVE Score: 0 AUDIT C Alcohol Use Questionnaire (AUDIT-C) 1. How often do you have a drink containing alcohol?: 2-3 times a week 2. How many drinks containing alcohol do you have on a typical day when you are drinking?: 1 or 2 3. How often do you have six or more drinks on one occasion?: Monthly Total Score: 5 Score Reviewed/Action Taken: Yes KEMI-7 AMB Questionnaire KEMI-7 Date KEMI - 7 assessed: 09/05/24 Feeling nervous, anxious, or on edge: 2 = More than half the days Not being able to stop or control worryin = Several days Worrying too much about different things: 1 = Several days Trouble relaxin = Several days Being so restless that it is hard to sit still: 3 = Nearly every day Becoming easily annoyed or irritable: 1 = Several days Feeling afraid as if something awful might happen: 1 = Several days Total KEMI-7 score (0-4 normal; 5-9 mild; 10-14 moderate; 15-21 severe): 10 Source: Developed by Drs. Ludwig Quintero, Ruby Taylor, Jamal Tierney and colleagues, with an educational shane from [employer]. KEMI-7 Assessment Billing KEMI-7 Assessment Tool: KEMI-7 Assessment 35389 Review of Systems Const Denies chills and Denies fever(s) Eyes Denies blurry vision ENT Denies vertigo, Denies dizziness and Denies sore throat Card Denies chest pain at rest, Denies chest pain with activity, Denies diaphoresis, Denies dyspnea and Denies dyspnea on exertion Resp Denies cough, Denies dyspnea, Denies dyspnea on exertion and Denies wheezing GI Denies abdominal pain, Denies melena, Denies hematochezia, Denies constipation, Denies diarrhea and Denies loose stools Denies hematuria Musc Denies numbness and Denies tingling Skin/Breast Denies lesions Neuro Denies vertigo, Denies dizziness, Denies numbness and Denies tingling Psych Denies anxiety, Denies depression, Denies homicidal ideation, Denies suicidal ideation and Denies other (substance abuse) Aller/Immun Denies wheezing Physical exam (Primary Care) Vital Signs: Last Vital Signs Pulse 82 09/05/24 08:34 BP 118/72 09/05/24 08:34 Pulse Ox 97 09/05/24 08:34 BMI result Body Mass Index 32.5 Tobacco/Smoking Status: Tobacco use Status Tobacco use date assessed 09/05/24 09/05/24 08:40 Patient Tobacco Use Status Never used Tobacco 09/05/24 08:36 e-Cigarette/Vaping Use Never Used 09/05/24 08:36 PHQ-9: PHQ-9 Score PHQ-9: Total score 6 09/05/24 08:40 Depression Screening Interpretation: Negative Thrive Assessment: Date of Thrive Assessment Date Thrive assessed 09/05/24 09/05/24 08:40 Currently or been in a relationship where the following occur: No concerns reported Const General: cooperative Nutritional Appearance: well nourished Orientation/consciousness: patient oriented x3 HENMT Head: Yes normal to inspection, Yes normocephalic and Yes atraumatic Ears: TM normal on the right and TM normal on the left Eyes General: appearance normal, both eyes and all related structures Alignment and Position: alignment normal and position normal Neck Neck: Yes normal visual inspection, Yes no lymphadenopathy and Yes supple Resp Effort & Inspection: normal respiratory effort Auscultation: clear to auscultation bilaterally Cardio Rate: regular rate Rhythm: regular rhythm Heart sounds: S1 normal heart sound present, S2 normal heart sound present and no murmurs GI Palpation (GI): Soft to palpation and nontender Auscultation: normal bowel sounds Male General Exam: Yes normal external exam Penis: normal penis Scrotum: scrotum normal, testes descended bilaterally and no inguinal hernias Testes: no testicular mass Skin Rashes: no rashes Neuro General: patient oriented x3, moves all extremities, no focal motor deficits and deep tendon reflexes 2+ bilaterally Romberg Test: Negative Extrem Right lower extremity: no edema Left lower extremity: no edema Psych Affect: normal affect Attitude: cooperative Thought process: Normal thought process present Coding Level of Care Code Est Pt Prev Care 18-39y(18323) Diagnoses Physical exam Z00.00 Anxiety F41.9 Additional Codes KEMI-7 Assessment Billing - KEMI-7 Assessment Tool: KEMI-7 Assessment 63265 ([id number]) PHQ-9 - 80579 - PHQ-9 Billing: Yes ([id number]) Assessment & Plan Assessment & Plan (1) Physical exam: Code(s): Z00.00 - Encounter for general adult medical examination without abnormal findings Category: Medical (2) Anxiety: Code(s): F41.9 - Anxiety disorder, unspecified Category: Medical Plan . Orders: Orders Complete Blood Count Auto Diff Today Z00.00 - Encounter for general adult medical examination without abnormal findings TSH reflex Free T4 Today Z00.00 - Encounter for general adult medical examination without abnormal findings Comprehensive [place]. Panel Fast Today Z00.00 - Encounter for general adult medical examination without abnormal findings UA CC w/rflx Micro + Cult Today Z00.00 - Encounter for general adult medical examination without abnormal findings Lipid Panel Today Z00.00 - Encounter for general adult medical examination without abnormal findings Medications: New buspirone 5 mg PO BID 60 tabs 3RF 30 days Refilled citalopram 40 mg (2 x 20 mg) PO DAILY 180 tabs 1RF
[2024-09-05 08:34] VITALS: BP 118/72; PULSE 82; O2SAT 97; BMI 32.5
--- OUTSIDE RECORDS SUMMARY | 2024-09-05 08:47 | XMS_ITS | Patient Health Record ---
[facility] Address [address] [place] [address] Care Team Providers Care Inspector Penetrant Name Role Phone Hoang Gilmore MD Primary Care Provider Ronald Cesar Unavailable [phone] Reason For Referral No Information Medications Medication SIG (Take, Route, Frequency, Duration) Notes Start Date End Date Status Acetaminophen-Codeine 300-60 MG 1 tablet as needed Orally every 6 hrs for as needed 11/30/2012 Active Problems Problem Type SNOMED Code ICD Code Onset Dates Problem Status W/U Status Risk Notes Problem Verruca plantaris (45102857) Verruca Plantaris (078.19) Active confirmed Problem Puncture wound (98414896) Puncture Wound (892.0) Active confirmed Problem Ulcer of Other Part of Foot (707.15) Active confirmed Plan Of Treatment Pending Test Test Name Order Date 15697-Ouvf Destruction, -11/13/2012 71420-Rchp Destruction, -14 11/28/2012 70278- Debride <25 sq cm 09/08/2012 Insurance Providers Payer Name Payer Address Payer Phone Subscriber Number Group Number Insured Name Patient Relationship to Insured Coverage Start Date Coverage End Date [facility] [employer] Others [address] [place] [address] [phone] [id number] Fabricio Wan i Self - patient is the insured Medical (General) History Medical History History ICD Code chicken pox
== END 2024-09-05 09:11 | disposition home or self-care (01) ==
LOC: HO.HMCC 08:26
PROVIDERS: PCP Nurse Practitioner Family; Visit Provider Nurse Practitioner Family
DX: Z00.00 Encounter for general adult medical examination without abnormal findings (principal); F41.9 Anxiety disorder, unspecified

== ENCOUNTER → 2024-09-05 08:26 | Outpatient (BNVA) | payer OTHER, SELFPAY | PROVIDERS: PCP Nurse Practitioner Family; Visit Provider Nurse Practitioner Family | DX: Z00.00 Encounter for general adult medical examination without abnormal findings (principal); F41.9 Anxiety disorder, unspecified | CPT/HCPCS: 96127; 99395 ==

== ENCOUNTER 2024-10-11 16:05 | Outpatient (AMB) | payer OTHER, SELFPAY ==
--- NOTE | 2024-10-11 16:05 | MHC.OFFVIS ---
Intake Visit Reasons: 7wk follow up / lasix renal sco Intake Note: Patient presents to office today via telehealth for 7wk follow up/lasix renal sco Urology Med: None Blood Thinner: None Allergies No Known Allergies Allergy (Verified 11/05/24 15:15) HPI Comments Details: 10/11/24--Fabricio is a 34-year-old male who is presenting for a telehealth follow-up to review renal scan he has an ectopic left kidney. History of Present Illness - The patient is a 34-year-old male presenting for a telehealth follow-up to review renal scan results. - The patient has an ectopic left kidney, which was identified during previous imaging studies. - The renal scan indicates that the right kidney is performing the majority of renal functions, approximately 70%, while the ectopic left kidney contributes about 30%. - No masses were detected on the MRI, and blood work showed normal kidney function. Results - Renal scan: Right kidney performing 70% of renal function, left ectopic kidney performing 30%. - MRI: No masses detected. - Blood work: Normal kidney function. Plan - Referral to nephrology for further evaluation and management due to the functional status of the kidneys, keyur to having a solitary kidney. FU with Urology on a prn basis. 08/16/24-- Fabricio is a 34-year-old male who is here for evaluation as a new patient due to ectopic kidney. The right kidney is malrotated. The left kidney is located ectopically in the upper pelvis and is also malrotated. No evidence of a renal mass. [facility] Medical History Anxiety Fatty liver Surgical History H/O vasectomy History of hernia surgery Family History Father Hypertension Mother No problems noted. 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 Cognitive needs: No Hearing needs: No Vision needs: No Review of Systems Const All systems reviewed & are unremarkable except as noted in HPI and below Reports no additional complaints Eyes Reports no additional complaints ENT Reports no additional complaints Card Reports no additional complaints Resp Reports no additional complaints GI Reports no additional complaints Reports as per HPI Musc Reports no additional complaints Skin/Breast Reports system reviewed and no additional complaints, except as documented Neuro Reports no additional complaints Psych Reports no additional complaints Endo Reports no additional complaints Emery/Lymph Reports no additional complaints Aller/Immun Reports no additional complaints Telehealth Telehealth Telehealth Platform: Telephone Location of provider rendering services: practice address Location of patient: address on file Patient Identification confirmed using: Name, : Yes Telehealth method: voice only Patient verbally consented to treatment: Yes Patient verbally consented to billing insurance company: Yes Patient informed of any privacy concerns related to visit: Yes Minutes spent on Phone/Video with Pt.: 14 Results Reviewed Results Reviewed: Date of Service: 08/30/24 EXAMINATION: NM KIDNEY IMAGING CLINICAL INFORMATION: Ectopic kidney COMPARISON: MRI abdomen 06/19/2024 TECHNIQUE: Following intravenous administration of 10 mCi of technetium 99m DTPA, imaging over both kidneys was obtained at 2 seconds per frame for 1 minute followed by 2 minute static images up to 60 minutes. 40 mg Lasix was given at 30 minutes into the scan. The exam was stopped at 50 minutes as patient had to urgently urinate. FINDINGS: On perfusion scan there is slightly diminished perfusion to the left kidney. This could be inaccurate due to low lying and pelvic kidney and decreased measurable counts. The right kidney has normal perfusion. On static images left kidneys low-lying, ectopic. There is symmetrical cortical uptake with slightly delayed excretion of the right kidney. On renogram curves the cortical split function left kidney is 29.5% and right kidney is 70.5% image includes the entire scan. There is no obstruction. Time from Lasix to half Lasix left kidney is 35.6 and right kidney is 13.4 minutes. IMPRESSION: Ectopic low-lying left kidney in upper pelvis. There is slight diminished perfusion to the left kidney and may be due to a low-lying position and and significant attenuation. The right kidney perfusion is normal. There is normal right cortical uptake, function and excretion considering there is 5 to 10 minute gap post Lasix at 50 minutes into the exam. There is slightly diminished left cortical function compared to right. There is no hydronephrosis in either kidney. The Lasix response is irrelevant as there was diminished cortical function in left kidney Total split renal functional left kidney is 29.5% and right kidney 70.5%. No evidence of hydronephrosis Date of Service: 06/19/24 EXAMINATION: MRI Abdomen without and with contrast HISTORY: 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 TECHNIQUE: Axial in and out of phase T1-weighted gradient echo, axial diffusion weighted, and axial and coronal HASTE T2 with fat saturation images were obtained through the abdomen. Subsequently, fat suppressed axial and coronal T1-weighted images were obtained after the intravenous administration of 10 mL Gadavist. FINDINGS: There is diffuse loss of signal intensity within the liver on opposed phase imaging, consistent with steatosis. There is a tiny 2 mm cyst in the right lobe. No enhancing liver mass is identified. The hepatic and portal veins are patent. There is no intra or extrahepatic biliary ductal dilatation. There are tiny T2 hypointense enhancing foci along the gallbladder wall consistent with polyps, as noted on ultrasound. The spleen, pancreas, and adrenals are unremarkable. The right kidney is malrotated with the renal hilum facing anterolaterally and to the right. The left kidney is ectopic, located in the upper pelvis and is also malrotated, with the hilum facing anteriorly. There are hypertrophied columns of Matthias bilaterally. There is no renal mass. No retroperitoneal lymphadenopathy or ascites is identified in the upper abdomen. The visualized bones demonstrate normal marrow signal intensity. IMPRESSION: 1. Hepatic steatosis. 2. Tiny gallbladder polyps as noted on ultrasound. 3. The right kidney is malrotated. The left kidney is located ectopically in the upper pelvis and is also malrotated. No evidence of a renal mass. Assessment & Plan Assessment & Plan (1) Ectopic kidney: Code(s): Q63.2 - Ectopic kidney Category: Medical Plan Plan - Referral to nephrology for further evaluation and management due to the functional status of the kidneys, keyur to having a solitary kidney. FU with Urology on a prn basis. Orders: Referrals Nephrology Referral Q63.2 - Ectopic kidney Patient Instructions: The patient had an opportunity to ask questions regarding treatment plan. The patient expressed understanding and agreement with the above treatment plan. The patient is aware they should contact our office by phone for worsening of their current condition or the appearance of new symptoms. Compliance is encouraged with any medications and followup testing that is ordered. It is a privilege to be allowed the opportunity to participate in the urologic care of your patient. If you have any questions or concerns regarding treatment for the above conditions please do not hesitate to contact me. The office telephone contact is [phone]. This note is constructed in part using voice recognition software. While every effort has been made to ensure accuracy grinder set up operator thread tool errors may have been included. Yours sincerely, Umang Perry MD Scribe Plan - Not visible on output: Patient was informed and verbally consented to the use of an ambient scribe for clinic note documentation during this visit. Coding Level of Care Code Est Pt Level 3 (79303) Complex EM visit Add On G2211 Diagnoses Ectopic kidney Q63.2
--- OUTSIDE RECORDS SUMMARY | 2024-10-11 16:06 | XMS_ITS | Patient Health Record ---
Author Organization [facility] Address [address] [place] [address] Care Team Providers Care Physician Office Assistant Name Role Phone Hoang Gilmore MD Primary Care Provider Ronald Cesar Unavailable [phone] Reason For Referral No Information Medications Medication SIG (Take, Route, Frequency, Duration) Notes Start Date End Date Status Acetaminophen-Codeine 300-60 MG 1 tablet as needed Orally every 6 hrs; Duration: as needed 11/30/2012 Active Problems Problem Type SNOMED Code ICD Code Onset Dates Problem Status W/U Status Risk Notes Problem Verruca plantaris (79898267) Verruca Plantaris (078.19) Active confirmed Problem Puncture wound (98716923) Puncture Wound (892.0) Active confirmed Problem Foot ulcer (01284659) Ulcer of Other Part of Foot (707.15) Active confirmed Plan Of Treatment Pending Test Test Name Order Date 00918-Dopz Destruction, -11/13/2012 87883-Pnud Destruction, 04-0311/28/2012 69449- Debride <25 sq cm 09/08/2012 Insurance Providers Payer Name Payer Address Payer Phone Subscriber Number Group Number Insured Name Patient Relationship to Insured Coverage Start Date Coverage End Date [employer] Others [address] [place] [address] [phone] [id number] Fabricio Wan i Self - patient is the insured Medical (General) History Medical History History ICD Code chicken pox
== END 2024-10-11 16:46 | disposition home or self-care (01) ==
LOC: HO.HUSH 16:05
PROVIDERS: PCP Nurse Practitioner Family; Visit Provider Urology
DX: Q63.2 Ectopic kidney (principal)
CPT/HCPCS: 99213

== ENCOUNTER → 2024-10-11 16:05 | Outpatient (BNVA) | payer OTHER, SELFPAY | PROVIDERS: PCP Nurse Practitioner Family; Visit Provider Urology | DX: Z71.2 Person consulting for explanation of examination or test findings (principal); Q63.2 Ectopic kidney | CPT/HCPCS: 99212 ==

== ENCOUNTER 2024-11-05 15:07 | Outpatient (AMB) | payer OTHER, SELFPAY ==
[2024-11-05 15:12] VITALS: BP 128/80; PULSE 82; O2SAT 98; BMI 31.8
--- NOTE | 2024-11-05 15:12 | HO.NEPHOV ---
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 Mal positioned left kidney The right kidney is compensating for the left, with measurements of 12.4 cm and 9.6 cm, respectively. The renal scan showed a 25% function for the left kidney and 75% for the right kidney. The patient has elevated liver enzymes, possibly due to past alcohol use. The patient has sleep apnea and uses a CPAP machine. 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 The patient takes citalopram and occasionally uses Advil. [facility] Medical History Anxiety Fatty liver Surgical History H/O vasectomy History of hernia surgery Family History Father Hypertension Mother No problems noted. 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 Cognitive needs: No Hearing needs: No Vision needs: No Review of Systems Const Denies anorexia, Denies fever(s) and Denies weakness Eyes Denies blurry vision Card Denies no additional complaints and Denies dyspnea Resp Reports no additional complaints, Reports cough and Denies dyspnea GI Denies melena and Denies diarrhea Denies hematuria Musc Denies tingling Skin/Breast Denies rash Neuro Denies focal weakness, Denies tingling, Denies tremor(s) and Denies weakness Physical Exam Vital Signs: Last Vital Signs Pulse 82 11/05/24 15:12 BP 128/80 11/05/24 15:12 Pulse Ox 98 11/05/24 15:12 Oxygen Delivery Method Room Air 11/05/24 15:12 BMI result Body Mass Index 31.8 Const General: comfortable Nutritional Appearance: well nourished Orientation/consciousness: patient oriented x3 HEENT Head: No normal to inspection Mouth: moist mucous membranes Neck Neck: Yes supple and Yes no JVD Resp Auscultation: clear to auscultation bilaterally, no rales and rub present Cardio Jugular venous distension: no JVD Palpation: no palpable S3 and no palpable S4 Heart sounds: no rubs GI Palpation (GI): Soft to palpation and nontender Percussion: No Fluid wave present General: Yes no CVA tenderness Back/Spine/Pelvis Back: no CVA tenderness Skin General skin exam: no rashes or lesions noted Neuro General: patient oriented x3 Extrem General: Yes no pedal edema and No clubbing Assessment & Plan Assessment & Plan (1) Ectopic kidney: Code(s): Q63.2 - Ectopic kidney Category: Medical Plan - Collect urine for 24 hours, starting after the first morning sample, and bring it to the lab. - Schedule blood tests as instructed. - Reduce alcohol consumption to help lower liver enzyme levels. - Return for a follow-up appointment in three to four weeks. Orders: Orders UA and rflx microscopic 11/05/24 Q63.2 - Ectopic kidney Sodium, 24Hr Urine Group 11/05/24 Q63.2 - Ectopic kidney Creatinine, 24 Hr Group 11/05/24 Q63.2 - Ectopic kidney Comprehensive Met. Panel 11/05/24 Q63.2 - Ectopic kidney Coding Level of Care Code New Pt Level 4 (38841) Diagnoses Ectopic kidney Q63.2
--- OUTSIDE RECORDS SUMMARY | 2024-11-05 15:43 | XMS_ITS | Patient Health Record ---
Author Organization [facility] Address [address] [place] [address] Care Team Providers Care Water Pump Assembler Name Role Phone Hoang Gilmore MD Primary Care Provider Ronald Cesar Unavailable [phone] Reason For Referral No Information Medications Medication SIG (Take, Route, Frequency, Duration) Notes Start Date End Date Status Acetaminophen-Codeine 300-60 MG 1 tablet as needed Orally every 6 hrs; Duration: as needed 11/30/2012 Active Problems Problem Type SNOMED Code ICD Code Onset Dates Problem Status W/U Status Risk Notes Problem Verruca plantaris (52346459) Verruca Plantaris (078.19) Active confirmed Problem Puncture wound (48300089) Puncture Wound (892.0) Active confirmed Problem Foot ulcer (81659770) Ulcer of Other Part of Foot (707.15) Active confirmed Plan Of Treatment Pending Test Test Name Order Date [id number] Destruction, -11/13/2012 10221-Sejj Destruction, 04-0311/28/2012 89652- Debride <25 sq cm 09/08/2012 Insurance Providers Payer Name Payer Address Payer Phone Subscriber Number Group Number Insured Name Patient Relationship to Insured Coverage Start Date Coverage End Date [employer] [address] [place] [address] [phone] [id number] Fabricio Wan i Self - patient is the insured Medical (General) History Medical History History ICD Code chicken pox
== END 2024-11-05 15:30 | disposition home or self-care (01) ==
LOC: HO.HKA 15:08
PROVIDERS: PCP Nurse Practitioner Family; Referring Provider Urology; Visit Provider Internal Medicine Hypertension Specialist
DX: Q63.2 Ectopic kidney (principal)
CPT/HCPCS: 99204

== ENCOUNTER → 2024-11-05 15:07 | Outpatient (BNVA) | payer OTHER, SELFPAY | PROVIDERS: PCP Nurse Practitioner Family; Referring Provider Urology; Visit Provider Internal Medicine Hypertension Specialist | DX: Q63.2 Ectopic kidney (principal) | CPT/HCPCS: 99202 ==

== ENCOUNTER 2024-11-14 06:00 | Outpatient (REF) | payer OTHER, SELFPAY ==
--- OUTSIDE RECORDS SUMMARY | 2024-11-14 09:02 | XMS_ITS | Patient Health Record ---
Author Organization [facility] Address [address] [place] [address] Care Team Providers Care Telegraph Dispatcher Name Role Phone Hoang Gilmore MD Primary Care Provider Ronald Cesar Unavailable [phone] Reason For Referral No Information Medications Medication SIG (Take, Route, Frequency, Duration) Notes Start Date End Date Status Acetaminophen-Codeine 300-60 MG 1 tablet as needed Orally every 6 hrs; Duration: as needed 11/30/2012 Active Problems Problem Type SNOMED Code ICD Code Onset Dates Problem Status W/U Status Risk Notes Problem Verruca plantaris (33517163) Verruca Plantaris (078.19) Active confirmed Problem Puncture wound (22721765) Puncture Wound (892.0) Active confirmed Problem Foot ulcer (48959336) Ulcer of Other Part of Foot (707.15) Active confirmed Plan Of Treatment Pending Test Test Name Order Date [id number] Destruction, -11/13/2012 17275-Ntpu Destruction, 04-0311/28/2012 78879- Debride <25 sq cm 09/08/2012 Insurance Providers Payer Name Payer Address Payer Phone Subscriber Number Group Number Insured Name Patient Relationship to Insured Coverage Start Date Coverage End Date [employer] [address] [place] [address] [phone] [id number] Fabricio Wan i Self - patient is the insured Medical (General) History Medical History History ICD Code chicken pox
[2024-11-14 10:10] LABS: Appearance Urine Turbid; Glucose Urine UA Negative (Negative); PH 5.5 (5.0-9.0); Specific Gravity - Urine 1.025 (1.005-1.025)
[2024-11-14 11:07] LABS: Creatinine, mg/dL 71.25; Creatinine, mg/dL 71.40; Sodium, 24 Hr Urine 57.0 mmol/L
[2024-11-14 13:21] LABS: Total Volume 24 Hour Urine 2600 mL
[2024-11-14 13:22] LABS: Total Volume 24 Hour Urine 2600 mL
== END 2024-11-14 06:01 | disposition home or self-care (01) ==
LOC: HO.HMGCLNP 06:00
PROVIDERS: PCP Nurse Practitioner Family; Visit Provider Internal Medicine Hypertension Specialist
DX: Q63.2 Ectopic kidney (principal)
CPT/HCPCS: 81003; 82570; 84300

== ENCOUNTER → 2024-11-27 06:56 | Outpatient (BNVA) | payer OTHER, SELFPAY | PROVIDERS: PCP Nurse Practitioner Family; Visit Provider Nurse Practitioner Family | DX: F41.1 Generalized anxiety disorder (principal); Z79.899 Other long term (current) drug therapy | CPT/HCPCS: 96127; 99212 ==

== ENCOUNTER 2024-11-27 12:21 | Outpatient (AMB) | payer OTHER, SELFPAY ==
[2024-11-27 12:30] VITALS: BP 126/72; PULSE 80; RESP 19; TEMP 36.9; O2SAT 96; BMI 31.3
--- NOTE | 2024-11-27 12:30 | A.OFFPC_ITS ---
Vital Signs 11/27/24 12:30 Height 5 ft 8 in Weight 206 lb BMI 31.3 BP 126/72 Blood Pressure Location Lt brachial Position Sitting Respiration 19 Pulse 80 Pulse Source Pulse Oximeter Temp 98.4 F Temp Source Oral Pulse Oximetry (%) 96 Oxygen Delivery Method Room Air Intake Visit Reasons: anxiety med follow up Intake Note: Pt is here today for a follow up visit on anxiety med. Allergies No Known Allergies Allergy (Verified 11/27/24 12:32) Medication List - Last Reconciled 11/27/24 by JOHANA Leahy-MELYSSA citalopram 40 mg (2 x 20 mg) PO DAILY Tobacco use date assessed: 11/27/24 Dental Screening Dental Screen Date: 09/05/24 HPI anxiety med follow up HPI Details Chief Complaint The patient reports increased anxiety and anxiety attacks. History of Present Illness The patient is a 34-year-old male presenting with increased anxiety and anxiety attacks. He has been on citalopram 40 mg for approximately 12 years, but recently he has experienced more frequent anxiety attacks. Previous trials with Buspirone resulted in side effects, leading to discontinuation. The patient denies any suicidal or homicidal ideation. He does not wish to engage in therapy at this time. Social History Health Maintenance Review of Systems - Psychiatric: Reports increased anxiety and anxiety attacks. Denies suicidal or homicidal ideation. Physical Exam General: Cooperative, healthy appearing, comfortable, no acute distress and well developed Orientation: Patient oriented x3 Limitations: No limitations Head: Normal to inspection Ears: Hearing grossly normal bilaterally Nose: Normal external nose present Face and sinus: Normal facial exam Eyes: Appearance normal, both eyes and all related structures Neck: Normal visual inspection and Yes full ROM Respiratory: Normal respiratory effort and able to speak in complete sentences. Clear to auscultation bilaterally Cardiovascular: Regular rate and rhythm. Normal S1 and S2 GI: Normal to inspection. Soft to palpation and nontender Skin: No rashes or lesions noted Neuro: Patient oriented x3 Extremities: Normal to inspection Results Plan 1. Generalized Anxiety Disorder The patient has been experiencing increased anxiety and anxiety attacks despite being on citalopram 40 mg for 12 years. Hydroxyzine is considered for acute anxiety management, and consultation with outpatient psychiatric services is planned to explore additional medication options. An EKG will be performed to monitor cardiac health. Discussion Notes I discussed with the patient the plan to manage his increased anxiety with hydroxyzine for acute episodes and the possibility of adding another medication after consulting with outpatient psychiatric services. We also agreed to perform an EKG to ensure his cardiac health is monitored. Patient Instructions - Take hydroxyzine as needed for acute a nxiety attacks. - Follow up with outpatient psychiatric services for further medication management. - Undergo an EKG as planned. [facility] Medical History Anxiety Fatty liver Surgical History H/O vasectomy History of hernia surgery Family History Father Hypertension Mother No problems noted. Brother Mental health disorder Substance use disorder Social History Housing: House Alcohol intake: unknown Patient Tobacco Use Status: Never used Tobacco e-Cigarette/Vaping Use: Never Used Current occupational status: employed Current occupation: [employer] Cognitive needs: No Hearing needs: No Vision needs: No Questionnaire PHQ-9 Over the last 2 weeks, how often have you been bothered by any of the following problems? 1. Little interest or pleasure in doing things: several days 2. Feeling down, depressed, or hopeless: several days 3. Trouble falling or staying asleep, or sleeping too much: not at all 4. Feeling tired or having little energy: not at all 5. Poor appetite or overeating: not at all 6. Feeling bad about yourself - or that you are a failure or have let yourself or your family down: several days 7. Trouble concentrating on things, such as reading the newspaper or watching television: not at all 8. Moving or speaking so slowly that other people could have noticed. Or the opposite - being so fidgety or restless that you have been moving around a lot more than usual: more than half the days 9. Thoughts that you would be better off or of hurting yourself in some way: not at all Total score: 5 Depression Screening Interpretation: Negative Depression Screening Done: Yes 17025 - PHQ-9 Billing: Yes Source: Developed by Drs. Ludwig Quintero, Jamal Cabrera and colleagues, with an educational shane from [employer]. Thrive Questionnaire Date Thrive assessed: 08/29/24 I am a: Patient What is your living situation today?: I have a steady place to live Within the past 12 months, did the food you bought not last and you didn't have the money to get more?: Never true Within the past 12 months, did you worry whether your food would run out before you got money to buy more?: Never true Do you have trouble paying for medicines?: No Do you have trouble getting transportation to medical appointments?: No Do you have trouble paying your heating and electricity bill?: No Do you have trouble taking care of your child, family member or friend?: No Do you have trouble with day-to-day activities such as bathing, preparing meals, shopping, managing finances, etc.?: No Are you currently unemployed and looking for a job?: No Are you interested in more education?: No Please select the resources that you would like help with: None Currently or been in a relationship where the following occur: No concerns reported THRIVE Score: 0 KEMI-7 AMB Questionnaire KEMI-7 Date KEMI - 7 assessed: 11/27/24 Feeling nervous, anxious, or on edge: 3 = Nearly every day Not being able to stop or control worryin = Nearly every day Worrying too much about different things: 3 = Nearly every day Trouble relaxin = More than half the days Being so restless that it is hard to sit still: 2 = More than half the days Becoming easily annoyed or irritable: 3 = Nearly every day Feeling afraid as if something awful might happen: 2 = More than half the days Total KEMI-7 score (0-4 normal; 5-9 mild; 10-14 moderate; 15-21 severe): 18 Source: Developed by Drs. Ludwig Quintero, Ruby Taylor, Jamal ramirez nd colleagues, with an educational shane from [employer]. KEMI-7 Assessment Billing KEMI-7 Assessment Tool: KEMI-7 Assessment 55369 Physical exam (Primary Care) Vital Signs: Last Vital Signs Temp 98.4 F 11/27/24 12:30 Pulse 80 11/27/24 12:30 Resp 19 11/27/24 12:30 BP 126/72 11/27/24 12:30 Pulse Ox 96 11/27/24 12:30 Oxygen Delivery Method Room Air 11/27/24 12:30 BMI result Body Mass Index 31.3 Tobacco/Smoking Status: Tobacco use Status Tobacco use date assessed 11/27/24 11/27/24 12:37 Patient Tobacco Use Status Never used Tobacco 11/27/24 12:30 e-Cigarette/Vaping Use Never Used 11/27/24 12:30 Depression Screening Interpretation: Negative Thrive Assessment: Date of Thrive Assessment Date Thrive assessed 08/29/24 11/27/24 12:30 Currently or been in a relationship where the following occur: No concerns reported Coding Level of Care Code Est Pt Level 3 (14943) Diagnoses Anxiety F41.9 Additional Codes KEMI-7 Assessment Billing - KEMI-7 Assessment Tool: KEMI-7 Assessment 79620 ([id number]) PHQ-9 - 21525 - PHQ-9 Billing: Yes ([id number]) Assessment & Plan Assessment & Plan (1) Anxiety: Code(s): F41.9 - Anxiety disorder, unspecified Category: Medical Plan .
== END 2024-11-27 14:37 | disposition home or self-care (01) ==
LOC: HO.HMCC 12:22
PROVIDERS: PCP Nurse Practitioner Family; Visit Provider Nurse Practitioner Family
DX: F41.9 Anxiety disorder, unspecified (principal)

== ENCOUNTER 2024-12-11 11:23 | Outpatient (AMB) | payer OTHER, SELFPAY ==
[2024-12-11 11:34] VITALS: BP 116/68; PULSE 83; O2SAT 96; BMI 31.2
--- NOTE | 2024-12-11 11:34 | HO.NEPHOV ---
Vital Signs 12/11/24 11:34 Height 5 ft 8 in Weight 205 lb BMI 31.2 BP 116/68 Blood Pressure Location Rt brachial Position Sitting Pulse 83 Pulse Source Pulse Oximeter Pulse Oximetry (%) 96 Oxygen Delivery Method Room Air Intake Visit Reasons: 1 MO FU-Conf Coroner'S Juror Required: No Accompanied by: Self / Same As Patient Allergies No Known Allergies Allergy (Verified 12/11/24 11:36) HPI Comments Details: 34-year-old male referred for evaluation of kidney function and anatomical abnormalities. Mal positioned left kidney The right kidney is compensating for the left, with measurements of 12.4 cm and 9.6 cm, respectively. The renal scan showed a 25% function for the left kidney and 75% for the right kidney. The patient has elevated liver enzymes, possibly due to past alcohol use. The patient has sleep apnea and uses a CPAP machine. 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 The patient takes citalopram and occasionally uses Advil. 12/11/24 History of Present Illness - The patient is a 34-year-old male presenting for evaluation of malposition of the left kidney. - Kidney malposition identified, functioning normally. - 24-hour urine collection: Normal creatinine clearance, 2.6 liters output. - Blood pressure controlled, sodium intake normal. - Annual monitoring with blood test recommended. [facility] Medical History Anxiety Fatty liver Surgical History H/O vasectomy History of hernia surgery Family History Father Hypertension Mother No problems noted. 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 Malposition Of The Left Kidney 24 hr urien shows CrCl > 10 ml/mt - Kidney functioning normally despite malposition. - Annual blood test monitoring advised. - Follow-up with primary care physician recommended. Patient Instructions - Continue regular follow-ups with your primary care physician. - Undergo annual blood tests to monitor kidney function. - Contact the nephrology clinic if any new symptoms arise. Coding Level of Care Code Est Pt Level 3 (19320) Diagnoses Ectopic kidney Q63.2
--- OUTSIDE RECORDS SUMMARY | 2024-12-11 14:17 | XMS_ITS | Patient Health Record ---
Author Organization [facility] Address [address] [place] [address] Care Team Providers Care Brake Operator Name Role Phone Hoang Gilmore MD Primary Care Provider Ronald Cesar Unavailable [phone] Reason For Referral No Information Medications Medication SIG (Take, Route, Frequency, Duration) Notes Start Date End Date Status Acetaminophen-Codeine 300-60 MG 1 tablet as needed Orally every 6 hrs; Duration: as needed 11/30/2012 Active Problems Problem Type SNOMED Code ICD Code Onset Dates Problem Status W/U Status Risk Notes Problem Verruca plantaris (08693661) Verruca Plantaris (078.19) Active confirmed Problem Puncture wound (13843373) Puncture Wound (892.0) Active confirmed Problem Foot ulcer (10640296) Ulcer of Other Part of Foot (707.15) Active confirmed Plan Of Treatment Pending Test Test Name Order Date [id number] Destruction, -11/13/2012 99009-Atzs Destruction, 04-0311/28/2012 61467- Debride <25 sq cm 09/08/2012 Insurance Providers Payer Name Payer Address Payer Phone Subscriber Number Group Number Insured Name Patient Relationship to Insured Coverage Start Date Coverage End Date [employer] [address] [place] [address] [phone] [id number] Fabricio aWn i Self - patient is the insured Medical (General) History Medical History History ICD Code chicken pox
== END 2024-12-11 12:04 | disposition home or self-care (01) ==
LOC: HO.HKA 11:24
PROVIDERS: PCP Nurse Practitioner Family; Visit Provider Internal Medicine Hypertension Specialist
DX: Q63.2 Ectopic kidney (principal)
CPT/HCPCS: 99213

== ENCOUNTER → 2024-12-11 11:23 | Outpatient (BNVA) | payer OTHER, SELFPAY | PROVIDERS: PCP Nurse Practitioner Family; Visit Provider Internal Medicine Hypertension Specialist | DX: Q63.2 Ectopic kidney (principal) | CPT/HCPCS: 99212 ==

== ENCOUNTER 2024-12-17 15:38 | Outpatient (AMB) | payer OTHER, SELFPAY ==
[2024-12-17 15:54] VITALS: BP 118/76; PULSE 93; O2SAT 98
--- NOTE | 2024-12-17 15:54 | AM.OFFWIN_ITS ---
Intake Vital Signs 12/17/24 15:54 Height 5 ft 8 in BP 118/76 Blood Pressure Location Rt brachial Position Sitting Pulse 93 Pulse Source Pulse Oximeter Pulse Oximetry (%) 98 Oxygen Delivery Method Room Air Intake Visit Reasons: EP Bad sciatica Patient Tobacco Use Status: Never used Tobacco Allergies No Known Allergies Allergy (Verified 12/17/24 15:55) Do you need a note to return to daycare/school/sports/work: No HPI HPI Comments History of Present Illness Details History of Present Illness - The patient is a 34-year-old male pres enting with back pain. - The patient reports a history of lumba r disc herniation diagnosed approximately 15 years ago, which resolved spontaneously over time. - Current symptoms began a couple of day s ago with dull pain that escalated to severe pain this morning, affecting mobility and causing difficulty in lifting legs. - The pain radiates down the front and b ack of the right leg, accompanied by weakness and occasional sharp pain causing the legs to give out. - The patient denies any incontinence of urine or stool, abdominal pain, chest pain, or shortness of breath. - The patient has been taking ibuprofen 800 mg for pain relief, with limited effectiveness. - No recent heavy lifting or specific in citing event was identified, although the patient mentioned moving some wood. 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 - He denies saddle anesthesia, CP, SOB, abd pain, dysuria, hematuria, fall or trauma. Physical Exam General: Cooperative, healthy appearing, comfortable, no acute distress and well developed Orientation: Patient oriented x3 Limitations: Patient reports difficulty lifting legs and walking due to pain Respiratory: Normal respiratory effort and able to speak in complete sentences. Clear to auscultation bilaterally. No w/r/r noted. Cardiovascular: Regular rate and rhythm. Normal S1 and S2. No m/r/g noted. GI: Normal to inspection. Soft to palpation and nontender, non distended. No guarding noted. No CVA tenderness noted. Skin: No rashes or lesions noted MSK: Decrease ROM of spine due to pain. No midline spinous tenderness noted. No step offs noted. No TTP of the lumbar paraspinous muscles. TTP Of the right SI joint. Positive SLR on the right. FROM of the knee and ankle on the right. No calf tenderness noted. Strength is 5/5 on the LE bilaterally. Neuro: Patient oriented x3. Sensation is intact. Extremities: Pain noted in legs, difficulty lifting legs, no calf pain, no burning sensation, no incontinence of urine or stool Patient was informed and verbally consented to the use of an ambient scribe for clinic note documentation during this visit. [facility] Medical History Anxiety Fatty liver Surgical History H/O vasectomy History of hernia surgery Family History Father Hypertension Mother No problems noted. 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 Cognitive needs: No Hearing needs: No Vision needs: No Review of Systems Const All systems reviewed & are unremarkable except as noted in HPI and below Physical Exam Vital Signs: Last Vital Signs Pulse 93 12/17/24 15:54 BP 118/76 12/17/24 15:54 Pulse Ox 98 12/17/24 15:54 Oxygen Delivery Method Room Air 12/17/24 15:54 Assessment & Plan Assessment & Plan (1) Back pain with sciatica: Code(s): M54.9 - Dorsalgia, unspecified; M54.30 - Sciatica, unspecified side Plan Most likely sciatica vs disc herniation vs strain plan - Prescribed medications include a muscle relaxer, pain medication, and prednisone for 5 days to reduce inflammation and manage pain. - Advised to use heat or alternate with ice for symptomatic relief and to avoid lying on soft surfaces like couches. - Recommended to lay flat on the floor with legs elevated to minimize pain. 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 - follow up with PCP Medications: New prednisone 40 mg (2 x 20 mg) PO DAILY 10 tabs 0RF 5 days cyclobenzaprine 10 mg (2 x 5 mg) PO Q8H PRN 20 tabs 0RF Muscle Spasm meloxicam 15 mg PO DAILY 15 tabs 0RF Coding Level of Care Code Est Pt Level 3 (45105) Diagnoses Back pain with sciatica M54.9; M54.30
--- OUTSIDE RECORDS SUMMARY | 2024-12-17 17:40 | XMS_ITS | Patient Health Record ---
Author Organization [facility] Address [address] [place] [address] Care Team Providers Care Marbleizer Name Role Phone Hoang Gilmore MD Primary Care Provider Ronald Cesar Unavailable [phone] Reason For Referral No Information Medications Medication SIG (Take, Route, Frequency, Duration) Notes Start Date End Date Status Acetaminophen-Codeine 300-60 MG 1 tablet as needed Orally every 6 hrs; Duration: as needed 11/30/2012 Active Problems Problem Type SNOMED Code ICD Code Onset Dates Problem Status W/U Status Risk Notes Problem Verruca plantaris (40659911) Verruca Plantaris (078.19) Active confirmed Problem Puncture wound (45185190) Puncture Wound (892.0) Active confirmed Problem Foot ulcer (55892696) Ulcer of Other Part of Foot (707.15) Active confirmed Plan Of Treatment Pending Test Test Name Order Date [id number] Destruction, -11/13/2012 [id number]-Rhmy Destruction, 04-0311/28/2012 98379- Debride <25 sq cm 09/08/2012 Insurance Providers Payer Name Payer Address Payer Phone Subscriber Number Group Number Insured Name Patient Relationship to Insured Coverage Start Date Coverage End Date [employer] [address] [place] [address] [phone] [id number] Fabricio Wan i Self - patient is the insured Medical (General) History Medical History History ICD Code chicken pox
== END 2024-12-17 16:16 | disposition home or self-care (01) ==
PROVIDERS: PCP Nurse Practitioner Family; Visit Provider Physician Assistant Medical
DX: M54.9 Dorsalgia, unspecified (principal); M54.30 Sciatica, unspecified side

== ENCOUNTER → 2024-12-17 15:38 | Outpatient (BNVA) | payer OTHER, SELFPAY | PROVIDERS: PCP Nurse Practitioner Family; Visit Provider Physician Assistant Medical | DX: M79.605 Pain in left leg (principal); M79.604 Pain in right leg; M54.30 Sciatica, unspecified side | CPT/HCPCS: 99212 ==

== ENCOUNTER 2025-01-24 14:50 | Outpatient (AMB) | payer OTHER, SELFPAY ==
--- NOTE | 2025-01-24 15:01 | MHC.OFFVISPS ---
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 Reported increased episodes of panic. Pt reports in the summer he was having daily panic attacks. Now its 2-3 x a week. He is taking celexa 40mg daily for past 12 yrs. he does not want to change it as he feelsit helps his anxiety overall. He has tried other meds in the past: lexapro, buspar, abilify, hydroxyzine and lorazeapm. He reports none of these except ativan helped much and he does not like the idea of a daily medication in addition to the celexa. Pts PHQ9=9 and his GAD7=11. He reports the onse tof anxiety was 12 yrs ago and he was treated successfully for years outp by PCP. He states the quality of thepanic attacks are different now: he states he can feel them coming on slowly and the evolve until he feels like he can't cope and has to flee- get out of the situation. He does not know the trigger. Pt was diagnosed with ADHD and dyslexia as a child. He went to a school that specialized in teaching kids with dyslexia and ADHD ([employer]) He graduated; he never took meds for ADHD. He went to [employer] for automotive program and then went on to advanced traiing in [employer]. 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 Past Psychiatric History: out pt med trials lexapro, buspar, abilify, hydroxyzine, ativan. No IPLOC Subjective Subjective Medication Compliance: Yes Side effects from medications: No Review of Systems Medical Review of Systems: unchanged Mental Status Exam Mental Status Exam Patient Appearance: Well Grooomed and Appropriate Patient Orientation: Person, Place, Time and Situation Level of Consciousness: Awake and Appropriate Patient Behavior: Appropriate, Guarded and Cooperative Mood Description: Appropriate and Anxious Affect Description: Appropriate and Anxious Patient Cognition Impaired: No Ability to Follow Directions: Good Speech Pattern: Clear and Appropriate Memory Description: Intact Hallucinations: None Delusions: Not Present Thought Process: Intact and Goal Oriented Thought Content: positive for Intact and positive for Goal Oriented Judgement: Good Assessment and Plan Assessment & Plan (1) Generalized anxiety disorder with panic attacks: Status: Acute Code(s): F41.1 - Generalized anxiety disorder; F41.0 - Panic disorder [episodic paroxysmal anxiety] Plan continue celexa 40mg teaching re: QTC and other QTC prolonging meds such as opiates for surgery or dental work advised to lower the celexa while on any QTC prolonging drugs and then resume dose recommend annual/biannual EKG while on celexa 40mg add lorazepam 0.5mg one a day prn panic onset discussed if taking every day I would recommend trying alternative medication to the celexa stay hydrated eat regular meal with protein for blood sugar stability add magnesium glycinate 100-200mg 1-2 times a day as tolerated return in 8 weeks Medications: New lorazepam (Ativan) 0.5 mg PO DAILY PRN 30 tabs 1RF panic Discontinued prednisone Discontinued Reason: Patient Completed Course 40 mg (2 x 20 mg) PO DAILY 5 days 10 tabs 0RF cyclobenzaprine Discontinued Reason: Patient no longer taking 10 mg (2 x 5 mg) PO Q8H PRN 20 tabs 0RF Muscle Spasm meloxicam Discontinued Reason: Patient no longer taking 15 mg PO DAILY 15 tabs 0RF Counseling and coordination of Care Pt. Self Management counseling: Exercise, Maintenance-social rhythm, Mod caffeine/ETOH intake, Nutrition education and improvement, Sleep hygiene, Behavior activation and General coping skills Medication management counseling: Effectiveness, Side effects, Dosing range, Duration, Drug interaction and Adherence Diagnosis and Prognosis Counseling: Accuracy of diagnosis, Prognosis over time, Impact of diagnosis on life functions, Impact of family relationship, Problematic behaviors secondary to diagnosis and Adequacy of current interventions Details: I spent 75 minutes reviewing the record, seeing the patient and documenting in the medical record. Counseling provided to the patient/caregiver as outlined below. Addressed patient/caregiver concerns regarding current medication regime including effective adherence. Addressed patient/caregiver concerns regarding diagnosis and prognosis including accuracy of diagnosis, prognosis over time, impact of diagnosis. Addressed patient/caregiver concerns regarding impact of recent stressors. PFS Medical History Anxiety Fatty liver Surgical History H/O vasectomy History of hernia surgery Family History Father Hypertension Mother No problems noted. 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 Grew up with mother, father and brother (5 yrs older) Brother dx Bipolar DO and substance abuse Brother in May 2024 due to probable drug overdose. 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 Trauma History: brother [place] and substance abuse Coding Level of Care Code Psych Diag Eval w/Med (94039) Diagnoses Generalized anxiety disorder with panic attacks F41.1; F41.0
--- OUTSIDE RECORDS SUMMARY | 2025-01-24 17:56 | XMS_ITS | Patient Health Record ---
Author Organization [facility] Address [address] [place] [address] Care Team Providers Care District Sales Manager Name Role Phone Hoang Gilmore MD Primary Care Provider Ronald Cesar Unavailable [phone] Reason For Referral No Information Medications Medication SIG (Take, Route, Frequency, Duration) Notes Start Date End Date Status Acetaminophen-Codeine 300-60 MG 1 tablet as needed Orally every 6 hrs; Duration: as needed 11/30/2012 Active Problems Problem Type SNOMED Code ICD Code Onset Dates Problem Status W/U Status Risk Notes Problem Verruca plantaris (93311770) Verruca Plantaris (078.19) Active confirmed Problem Puncture wound (93475949) Puncture Wound (892.0) Active confirmed Problem Foot ulcer (64291651) Ulcer of Other Part of Foot (707.15) Active confirmed Plan Of Treatment Pending Test Test Name Order Date [id number] Destruction, -11/13/2012 [id number]-Xtou Destruction, 04-0311/28/2012 80128- Debride <25 sq cm 09/08/2012 Insurance Providers Payer Name Payer Address Payer Phone Subscriber Number Group Number Insured Name Patient Relationship to Insured Coverage Start Date Coverage End Date [employer] [address] [place] [address] [phone] [id number] Fabricio Wan i Self - patient is the insured Medical (General) History Medical History History ICD Code chicken pox
== END 2025-01-24 15:56 | disposition home or self-care (01) ==
LOC: HO.HOP 14:50
PROVIDERS: PCP Nurse Practitioner Family; Visit Provider Clinical Nurse Specialist Psychiatric/Mental Health
DX: F41.1 Generalized anxiety disorder (principal); F41.0 Panic disorder [episodic paroxysmal anxiety]
CPT/HCPCS: 90792

== ENCOUNTER → 2025-01-24 14:50 | Outpatient (BNVA) | payer OTHER, SELFPAY | PROVIDERS: PCP Nurse Practitioner Family; Visit Provider Clinical Nurse Specialist Psychiatric/Mental Health | DX: F41.1 Generalized anxiety disorder (principal); F41.0 Panic disorder [episodic paroxysmal anxiety] | CPT/HCPCS: 90792 ==

== ENCOUNTER 2025-02-22 08:20 | Outpatient (REF) | payer OTHER, SELFPAY ==
--- NOTE | ~2025-02-22 | US_ITS ---
CLINICAL HISTORY: K82.4 - Cholesterolosis of gallbladder US abdomen limited Comparison: MR/SR - MR ABDOMEN WITHOUT THEN WITH IV CONTRAST - 06/19/24 13:13 EDT US/NE/SR - US ABDOMEN - 06/11/24 08:30 EDT Findings: Common duct 2.1 mm diameter. Gallbladder is physiologically distended. No gallstones, sludge or wall abnormalities. Gallbladder polyps as follows: 0.7 x 0.3 x 0.6 cm previously measuring 0.6 x 0.5 x 0.4 cm and 0.4 x 0.3 x 0.3 cm. No pericholecystic fluid. No sonographic Linn sign. Impression: 1. Dominant gallbladder polyp has slightly increased in size This document has been electronically signed by: Gary Stone MD on 02/22/2025 09:18:39
[2025-02-22 10:09] LABS: MANUAL DIFF FLAG NO
[2025-02-22 10:24] LABS: Hematocrit 41.0 % (42.0-52.0); Hemoglobin 13.9 g/dl (14.0-18.0); Imm Gran Abs Auto 0.02 X10*3/uL (0.00-0.03); Imm Gran Pct Auto 0.3 % (0.0-0.4); Lymphocytes Absolute Auto 2.9 X10*3/uL (1.2-4.9); Mean Corpuscular HGB Conc 33.9 g/dl (31.0-36.0); Mean Corpuscular Hemoglobin 31.0 pg (27.0-33.0); Mean Corpuscular Volume 91.3 fL (80.0-98.0); NRBC Abs Auto 0.000 X10*3/uL (0.0-0.012); NRBC Pct Auto 0.0 /100WBC (0.0-0.2); Platelet Count 267 X10*3/uL (160-400); Red Blood Count 4.49 X10*6/uL (4.60-5.80); White Blood Count 7.0 X10*3/uL (4.8-10.8)
[2025-02-22 10:28] LABS: Appearance Urine Clear; Glucose Urine UA Negative (Negative); PH 7.5 (5.0-9.0); Specific Gravity - Urine 1.025 (1.005-1.025)
[2025-02-22 10:40] LABS: Alanine Aminotransferase 45 U/L (0-40); Albumin Level 4.9 g/dL (3.5-5.0); Alkaline Phosphatase 56 U/L (39-117); Anion Gap 14 (12-20); Aspartate Amino Transferase 31 U/L (5-37); Blood Urea Nitrogen 23 mg/dL (9-16); Calcium 9.9 mg/dL (8.4-10.2); Carbon Dioxide 28 mmol/L (22-29); Chloride 105 mmol/L (96-108); Cholesterol 223 mg/dL (<200); Estimated Glomerular Filt Rate > 60; HDL Cholesterol 36 mg/dL (>40); Potassium 4.6 mmol/L (3.3-5.1); Sodium 142 mmol/L (135-145); Total Protein 7.5 g/dL (6.5-8.0); Triglycerides 228 mg/dL (<150)
[2025-02-22 11:19] LABS: HBS Num1 69.63 mIU/mL (0-7.99); HBc Num1 0.05 S/CO (0.00-0.79); HBsAGNum1 0.34 S/CO (0.00-0.99); Hepatitis A Antibody IgM 0.15 Index (0-0.79); Hepatitis B Surface Antigen Negative (Negative); ~HepC Num1 0.22 S/CO (0.00-0.79); ~Hepatitis A Antibody IgM Nonreactive (Nonreactive); ~Hepatitis B Surface Antibody REACTIVE (Nonreactive); ~Hepatitis C Antibody Nonreactive (Nonreactive)
== END 2025-02-22 08:21 | disposition home or self-care (01) ==
LOC: HO.HMGCX 08:20
PROVIDERS: PCP Nurse Practitioner Family; Visit Provider Nurse Practitioner Family
DX: Z00.00 Encounter for general adult medical examination without abnormal findings (principal); Z11.59 Encounter for screening for other viral diseases; K82.4 Cholesterolosis of gallbladder; R74.8 Abnormal levels of other serum enzymes
CPT/HCPCS: 36415; 76705; 80053; 80061; 81003; 84443; 85025; 86704; 86706; 86709; 86803; 87340

== ENCOUNTER → 2025-02-22 08:25 | Outpatient (BNV) | payer OTHER, SELFPAY | PROVIDERS: PCP Nurse Practitioner Family; Visit Provider Radiology Diagnostic Radiology | DX: K82.4 Cholesterolosis of gallbladder (principal) | CPT/HCPCS: 76705 ==

== ENCOUNTER 2025-02-26 16:04 | Outpatient (AMB) | payer OTHER, SELFPAY ==
[2025-02-26 16:15] VITALS: BP 130/90; PULSE 89; TEMP 37.1; O2SAT 95; BMI 33.1
--- NOTE | 2025-02-26 16:15 | MHC.OFFWIV ---
Intake Vital Signs 02/26/25 16:15 Height 5 ft 8 in Weight 218 lb BMI 33.1 BP 130/90 H Blood Pressure Location Lt brachial Position Sitting Pulse 89 Pulse Source Pulse Oximeter Temp 98.7 F Temp Source Oral Pulse Oximetry (%) 95 Oxygen Delivery Method Room Air Intake Visit Reasons: EP high blood sugar Intake Note: pt presents with concern for high blood sugar Patient Tobacco Use Status: Never used Tobacco Allergies No Known Allergies Allergy (Verified 02/26/25 16:20) Do you need a note to return to daycare/school/sports/work: No HPI HPI Comments History of Present Illness Details History of Present Illness - The patient is a 34-year-old male presenting with concerns about elevated blood glucose. - He reports this is the third time his blood work has shown elevated glucose. His recent fasting glucose level was 108 mg/dL. - The patient has a family history of diabetes. - Regarding his diet, he consumes white pasta, white bread, white rice, and cereals. - His labs also showed elevated cholesterol. - He denies being sick recently but reports feeling stressed. Review of Systems - Constitutional: Denies recent illness. - Psychiatric: Reports increased stress. - All other systems reviewed and are negative. All systems reviewed and are unremarkable except as noted in HPI Physical Exam General: Cooperative, healthy appearing, comfortable, no acute distress and well developed Orientation: Patient oriented x3 Limitations: No limitations Head: Normal to inspection Ears: Hearing grossly normal bilaterally Nose: Normal External nose present Face and sinus: Normal facial exam Eyes: Appearance normal, both eyes and all related structures Neck: Normal visual inspection and Yes full ROM Respiratory: Normal respiratory effort and able to speak in complete sentences. Skin: No rashes or lesions noted Neuro: Patient oriented x3 Extremities: Normal to inspection [facility] Medical History Anxiety Fatty liver Surgical History H/O vasectomy History of hernia surgery Family History Father Hypertension Mother No problems noted. 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 Cognitive needs: No Hearing needs: No Vision needs: No Review of Systems Const All systems reviewed & are unremarkable except as noted in HPI and below Physical Exam Vital Signs: Last Vital Signs Temp 98.7 F 02/26/25 16:15 Pulse 89 02/26/25 16:15 BP 130/90 H 02/26/25 16:15 Pulse Ox 95 02/26/25 16:15 Oxygen Delivery Method Room Air 02/26/25 16:15 BMI result Body Mass Index 33.1 Results AMB Random Glucose (hemocue) AMB Random Glucose (hemocue) 143 mg/dL Last Edit by Camryn Becerra CMA on 02/26/25 16:32 End of day; non fasting AMB Hemoglobin A1c AMB Hemoglobin A1c 5.4 % Last Edit by Raul Jameson CMA on 02/26/25 16:42 Results Reviewed Results Reviewed: Laboratory Last Values Random Glu (Clinic) 143 mg/dL 02/26/25 16:31 Hgb A1c (Clinic) 5.4 % (4.0-6.0) 02/26/25 16:36 Assessment & Plan Assessment & Plan (1) Elevated blood sugar: Code(s): R73.9 - Hyperglycemia, unspecified Plan: Plan Patient was informed and verbally consented to the use of an ambient scribe for clinic note documentation during this visit. - A [id number] Hemoglobin A1c was performed to assess for diabetes given a history of elevated non-fasting glucose level today of 143 mg/dL. - The A1c result was 5.4%, which is within the normal range, ruling out prediabetes and diabetes. - The patient was reassured and educated on lifestyle modifications. - He was advised to exercise regularly and modify his diet to include complex carbohydrates, such as with a Mediterranean diet, while avoiding fast-acting carbohydrates and white foods. Orders: Orders AMB Random Glucose (hemocue) 02/26/25 Z13.9 - Encounter for screening, unspecified AMB Hemoglobin A1c 02/26/25 Z13.9 - Encounter for screening, unspecified Coding Level of Care Code Est Pt Level 3 (30280) Diagnoses Elevated blood sugar R73.9
--- OUTSIDE RECORDS SUMMARY | 2025-02-26 22:46 | XMS_ITS | Patient Health Record ---
Author Organization [facility] Address [address] [place] [address] Care Team Providers Care Friction Saw Operator Name Role Phone Hoang Gilmore MD Primary Care Provider Ronald Cesar Unavailable [phone] Reason For Referral No Information Medications Medication SIG (Take, Route, Frequency, Duration) Notes Start Date End Date Status Acetaminophen-Codeine 300-60 MG 1 tablet as needed Orally every 6 hrs; Duration: as needed 11/30/2012 Active Problems Problem Type SNOMED Code ICD Code Onset Dates Problem Status W/U Status Risk Notes Problem Verruca plantaris (72996386) Verruca Plantaris (078.19) Active confirmed Problem Puncture wound (89456426) Puncture Wound (892.0) Active confirmed Problem Foot ulcer (24345058) Ulcer of Other Part of Foot (707.15) Active confirmed Plan Of Treatment Pending Test Test Name Order Date [id number] Destruction, -11/13/2012 [id number] Destruction, 04-0311/28/2012 57401- Debride <25 sq cm 09/08/2012 Insurance Providers Payer Name Payer Address Payer Phone Subscriber Number Group Number Insured Name Patient Relationship to Insured Coverage Start Date Coverage End Date [employer] Others [address] [place] [address] [phone] [id number] Fabricio Wan i Self - patient is the insured Medical (General) History Medical History History ICD Code chicken pox
== END 2025-02-26 16:45 | disposition home or self-care (01) ==
PROVIDERS: PCP Nurse Practitioner Family; Visit Provider Physician Assistant
DX: R73.9 Hyperglycemia, unspecified (principal)

== ENCOUNTER → 2025-02-26 16:04 | Outpatient (BNVA) | payer OTHER, SELFPAY | PROVIDERS: PCP Nurse Practitioner Family; Visit Provider Physician Assistant | DX: K76.0 Fatty (change of) liver, not elsewhere classified (principal); R73.9 Hyperglycemia, unspecified | CPT/HCPCS: 82948; 83036; 99212 ==

== ENCOUNTER 2025-03-04 11:22 | Outpatient (AMB) | payer OTHER, SELFPAY ==
--- NOTE | 2025-03-04 11:32 | A.OFFPSYCH_ITS ---
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 He was diagnosed by Dr Wilbur Mccormick when he was 11 yrs old. he was dx with ADHD and Dyslexia. he went to a special school but did not ever take meds for the ADHD. His parents were against medications. He reports ongoing anxiiety, depression despite treating with celexa. he has difficulty with restlessness and inability to relax both at home and work. He reports worrying every day. he is irritable and annoyed. he scored 16 out of 18 on the ASRS v1.1 the adults self report scale . He reports the lorazepam didn't really help his anxiety. he would like to try an ADHD medication. Pt was diagnosed with ADHD and dyslexia as a child. He went to a school that specialized in teaching kids with dyslexia and ADHD ([employer]) He graduated; he never took meds for ADHD. He went to [employer] for automotive program and then went on to advanced traiing in [employer]. 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 Past Psychiatric History: out pt med trials lexapro, buspar, abilify, hydroxyzine, ativan. No IPLOC Subjective Subjective Medication Compliance: Yes Side effects from medications: No Review of Systems Medical Review of Systems: unchanged Mental Status Exam Mental Status Exam Patient Appearance: Well Grooomed and Appropriate Patient Orientation: Person, Place, Time and Situation Level of Consciousness: Awake and Appropriate Patient Behavior: Appropriate, Guarded and Cooperative Mood Description: Appropriate and Anxious Affect Description: Appropriate and Anxious Patient Cognition Impaired: No Ability to Follow Directions: Good Speech Pattern: Clear and Appropriate Memory Description: Intact Hallucinations: None Delusions: Not Present Thought Process: Intact and Goal Oriented Thought Content: positive for Intact and positive for Goal Oriented Judgement: Good Assessment and Plan Assessment & Plan (1) Generalized anxiety disorder with panic attacks: Status: Acute Code(s): F41.1 - Generalized anxiety disorder; F41.0 - Panic disorder [episodic paroxysmal anxiety] (2) ADHD (attention deficit hyperactivity disorder): Status: Acute Code(s): F90.9 - Attention-deficit hyperactivity disorder, unspecified type Plan continue celexa 40mg stop lorazepam 0.5mg one a day prn panic onset trial of Adderall 10mg BID stay hydrated eat regular meal with protein for blood sugar stability add magnesium glycinate 100-200mg 1-2 times a day as tolerated return in 8 weeks Medications: New dextroamphetamine-amphetamine 10 mg (Adderall) administer doses at least 4-6 hours apart; Partial Fill upon patient request. 10 mg PO BID 60 tabs 0RF F90.9 - Attention-deficit hyperactivity disorder, unspecified type Discontinued lorazepam (Ativan) Discontinued Reason: Doctor's Order 0.5 mg PO DAILY PRN 30 tabs 1RF panic Counseling and coordination of Care Pt. Self Management counseling: Exercise, Maintenance-social rhythm, Mod caffeine/ETOH intake, Nutrition education and improvement, Sleep hygiene, Behavior activation and General coping skills Medication management counseling: Effectiveness, Side effects, Dosing range, Duration, Drug interaction and Adherence Diagnosis and Prognosis Counseling: Accuracy of diagnosis, Prognosis over time, Impact of diagnosis on life functions, Impact of family relationship, Problematic behaviors secondary to diagnosis and Adequacy of current interventions Details: I spent 35 minutes reviewing the record, seeing the patient and documenting in the medical record. Counseling provided to the patient/caregiver as outlined below. Addressed patient/caregiver concerns regarding current medication regime including effective adherence. Addressed patient/caregiver concerns regarding diagnosis and prognosis including accuracy of diagnosis, prognosis over time, impact of diagnosis. Addressed patient/caregiver concerns regarding impact of recent stressors. [facility] Medical History Anxiety Fatty liver Surgical History H/O vasectomy History of hernia surgery Family History Father Hypertension Mother No problems noted. 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 Grew up with mother, father and brother (5 yrs older) Brother dx Bipolar DO and substance abuse Brother in May 2024 due to probable drug overdose. 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 Trauma History: brother [place] and substance abuse Coding Level of Care Code Est Pt Level 4 (66770) Diagnoses Generalized anxiety disorder with panic attacks F41.1; F41.0 ADHD (attention deficit hyperactivity disorder) F90.9
== END 2025-03-04 13:01 | disposition home or self-care (01) ==
LOC: HO.HOP 11:22
PROVIDERS: PCP Nurse Practitioner Family; Visit Provider Clinical Nurse Specialist Psychiatric/Mental Health
DX: F41.1 Generalized anxiety disorder (principal); F41.0 Panic disorder [episodic paroxysmal anxiety]; F90.9 Attention-deficit hyperactivity disorder, unspecified type
CPT/HCPCS: 99214

== ENCOUNTER → 2025-03-04 11:22 | Outpatient (BNVA) | payer OTHER, SELFPAY | PROVIDERS: PCP Nurse Practitioner Family; Visit Provider Clinical Nurse Specialist Psychiatric/Mental Health | DX: F41.1 Generalized anxiety disorder (principal); F41.0 Panic disorder [episodic paroxysmal anxiety]; F90.9 Attention-deficit hyperactivity disorder, unspecified type | CPT/HCPCS: 99212 ==